=== PATIENT | female | born 1935 | race Caucasian/White ===

== ENCOUNTER → 2017-01-11 | Outpatient (REF) | payer MEDICARE | LOC: M SMT 13:01 | PROVIDERS: ATTEND Nurse Practitioner Women's Health | DX: R30.0 Dysuria (principal) ==

== ENCOUNTER → 2017-01-23 | Outpatient (CLI) | payer MEDICARE ==
--- NOTE | 2017-01-23 11:27 | REP ---
CT abdomen pelvis without IV and oral contrast: Comparison is 05/13/2008. There are bilateral renal calculi most in the 3 mm size range except for the lower pole of the right kidney where there is an 8 mm calcification. These calculi are nonobstructive. Some of these calculi are again atheromatous calcifications. There are no ureteral calculi. There is no hydronephrosis. The gallbladder calculi. There are numerous phleboliths in the pelvis. There is a calcified granuloma in the lower lobe of the right lung. The visualized lung jimenez are otherwise unremarkable. The unenhanced hepatic parenchyma is unremarkable. The the patient states she has a cholecystectomy. Pancreas is unremarkable. The spleen is unremarkable. There is vascular calcified atheroma in the splenic artery and suspect there are splenic artery aneurysms. This is unchanged. The abdominal aorta is unremarkable except for calcified atheroma. The bowel and mesentery are unremarkable. Pelvis: There is no adenopathy or ascites. The bladder is unremarkable. There is a hysterectomy. Vaginal cuff and adnexa are unremarkable. Pelvic bowel loops are unremarkable. Impression: Bilateral renal calculi as described. Some of these may be vascular atheromatous calcifications. There is no hydronephrosis. There are no ureteral or bladder calculi. There are phleboliths in the pelvis. 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 There is bilateral hip osteoarthritis somewhat more advanced on the left. There is degenerative disc disease at multiple levels in the lumbar spine. Signed by González Gonzalez MD 01/23/2017 11:19 A
== END ==
LOC: M RAD 08:56
PROVIDERS: ATTEND Nurse Practitioner Women's Health
DX: R30.0 Dysuria (principal); R10.9 Unspecified abdominal pain

== ENCOUNTER → 2017-03-27 | Outpatient (REF) | payer MEDICARE ==
[2017-03-27 14:41] LABS: FERRITIN 182 NG/ML (8-252); IMMUNOGLOBULIN A 61.1 MG/DL (70-400); IMMUNOGLOBULIN G 1670 MG/DL (681-1648); IMMUNOGLOBULIN M 23.6 MG/DL (40-230); PERCENT SATURATION 28.3 % (13.2-45.0); TOTAL IRON BINDING CAPACITY 198 UG/DL (250-450)
[2017-03-28 15:01] LABS: ALBUMIN 3.58 GM/DL (3.29-5.55); ALBUMIN % 51.2 % (55.8-66.1); GAMMA GLOBULIN % 23.7 % (11.1-18.8)
[2017-03-29 14:14] LABS: FREE KAPPA LIGHT CHAINS SERUM 70.9 mg/L (3.3-19.4); FREE LAMBDA LIGHT CHAINS SERUM 13.1 mg/L (5.7-26.3); KAPPA/LAMBDA RATIO SERUM 5.41 (0.26-1.65)
== END ==
LOC: M LAB REF 13:28
PROVIDERS: ATTEND Internal Medicine Medical Oncology
DX: D47.2 Monoclonal gammopathy (principal)

== ENCOUNTER → 2017-04-27 | Outpatient (REF) | payer MEDICARE ==
[2017-04-27 15:03] LABS: TOTAL PROTEIN 7.4 GM/DL (6.4-8.2)
[2017-04-29 00:08] LABS: FREE KAPPA LIGHT CHAINS SERUM 65.2 mg/L (3.3-19.4); FREE LAMBDA LIGHT CHAINS SERUM 13.7 mg/L (5.7-26.3); KAPPA/LAMBDA RATIO SERUM 4.76 (0.26-1.65)
[2017-05-01 12:00] LABS: ALBUMIN 3.72 GM/DL (3.29-5.55); GAMMA GLOBULIN % 23.7 % (11.1-18.8)
[2017-05-01 12:56] LABS: ALBUMIN % 50.3 % (55.8-66.1)
== END ==
LOC: M LAB REF 08:11
PROVIDERS: ATTEND Internal Medicine Nephrology
DX: N18.3 Chronic kidney disease, stage 3 (moderate) (principal); D47.2 Monoclonal gammopathy

== ENCOUNTER → 2017-07-11 | Outpatient (REF) | payer MEDICARE ==
[2017-07-11 13:52] LABS: PERCENT SATURATION 30.8 % (13.2-45.0)
== END ==
LOC: M LAB REF 13:01
PROVIDERS: ATTEND Internal Medicine Medical Oncology
DX: D47.2 Monoclonal gammopathy (principal); D64.9 Anemia, unspecified

== ENCOUNTER → 2017-11-29 | Outpatient (REF) | payer MEDICARE ==
[2017-11-29 14:11] LABS: FERRITIN 188 NG/ML (8-252); IMMUNOGLOBULIN G 1770 MG/DL (681-1648); IRON (FE) 66 UG/DL (50-170); PERCENT SATURATION 28.7 % (13.2-45.0); TOTAL IRON BINDING CAPACITY 230 UG/DL (250-450); TOTAL PROTEIN 7.6 GM/DL (6.4-8.2)
[2017-11-30 10:14] LABS: ALBUMIN 3.83 GM/DL (3.29-5.55); ALBUMIN % 50.4 % (55.8-66.1); ALPHA-1-GLOBULIN % 3.6 % (2.9-4.9); ALPHA-1-GLOBULINS 0.27 GM/DL (0.17-0.41); ALPHA-2-GLOBULINS 0.97 GM/DL (0.42-0.99); ALPHA-2-GLOBULINS % 12.8 % (7.1-11.8); BETA-1-GLOBULINS 0.36 GM/DL (0.28-0.60); BETA-1-GLOBULINS % 4.7 % (4.7-7.2); BETA-2-GLOBULINS 0.29 GM/DL (0.19-0.55); BETA-2-GLOBULINS % 3.8 % (3.2-6.5); GAMMA GLOBULIN % 24.7 % (11.1-18.8); GAMMA GLOBULINS 1.88 GM/DL (0.65-1.58)
[2017-12-01 00:06] LABS: FREE KAPPA LIGHT CHAINS SERUM 76.1 mg/L (3.3-19.4); KAPPA/LAMBDA RATIO SERUM 6.34 (0.26-1.65)
== END ==
LOC: M LAB REF 13:12
DX: D47.2 Monoclonal gammopathy (principal)
CPT/HCPCS: 83550

== ENCOUNTER → 2018-02-07 | Outpatient (REF) | payer MEDICARE ==
[2018-02-07 14:29] LABS: IMMUNOGLOBULIN A 66.6 MG/DL (70-400); IMMUNOGLOBULIN G 1870 MG/DL (681-1648); TOTAL PROTEIN 7.1 GM/DL (6.4-8.2)
[2018-02-07 15:24] LABS: IMMUNOGLOBULIN M < 5.3 MG/DL (40-230)
[2018-02-08 09:51] LABS: ALBUMIN 3.54 GM/DL (3.29-5.55); ALBUMIN % 49.9 % (55.8-66.1); ALPHA-1-GLOBULIN % 3.7 % (2.9-4.9); ALPHA-1-GLOBULINS 0.26 GM/DL (0.17-0.41); ALPHA-2-GLOBULINS 0.92 GM/DL (0.42-0.99); ALPHA-2-GLOBULINS % 12.9 % (7.1-11.8); BETA-1-GLOBULINS 0.32 GM/DL (0.28-0.60); BETA-1-GLOBULINS % 4.5 % (4.7-7.2); BETA-2-GLOBULINS 0.26 GM/DL (0.19-0.55); BETA-2-GLOBULINS % 3.7 % (3.2-6.5); GAMMA GLOBULIN % 25.3 % (11.1-18.8)
[2018-02-09 00:07] LABS: FREE KAPPA LIGHT CHAINS SERUM 95.9 mg/L (3.3-19.4); FREE LAMBDA LIGHT CHAINS SERUM 14.1 mg/L (5.7-26.3)
== END ==
LOC: M LAB REF 13:37
DX: C84.9 Mature T/NK-cell lymphomas, unspecified (principal); N18.3 Chronic kidney disease, stage 3 (moderate); D47.2 Monoclonal gammopathy
CPT/HCPCS: 84165

== ENCOUNTER → 2018-03-19 | Outpatient (REF) | payer MEDICARE ==
[2018-03-19 13:45] LABS: FERRITIN 199 NG/ML (8-252); IRON (FE) 59 UG/DL (50-170); PERCENT SATURATION 27.7 % (13.2-45.0); TOTAL IRON BINDING CAPACITY 213 UG/DL (250-450)
== END ==
LOC: M LAB REF 13:17
DX: C84.9 Mature T/NK-cell lymphomas, unspecified (principal); N18.3 Chronic kidney disease, stage 3 (moderate); D47.2 Monoclonal gammopathy
CPT/HCPCS: 83550

== ENCOUNTER → 2018-07-02 | Outpatient (REF) | payer MEDICARE | LOC: M LAB REF 13:02 | DX: N18.3 Chronic kidney disease, stage 3 (moderate) (principal) | CPT/HCPCS: 84156 ==

== ENCOUNTER → 2018-11-22 | Outpatient (REF) | payer MEDICARE ==
[~2018-11-22] MED LIST: ACET160S6 FT; AMLO10TA5 PO; ASPI81CH33 PO; ATOR40TA75 PO; AZIT-12 PO; COZA100T2 PO; FERR325T82 PO; FISH7.5C PO; GLUC1CAP10 PO; GLUCPOW24 PO; LEVO50TA5 PO; MAGN250T7 PO; METO25TA4 PO; NITR0.4S14 SL; OXYB10TA PO; VITAD1000T PO
[2018-11-22 13:42] LABS: TOTAL PROTEIN 7.3 GM/DL (6.4-8.2)
[2018-11-22 17:13] LABS: TOTAL PROTEIN,RANDOM URINE 165.2 MG/DL (0.0-12.0); URINE TOTAL PROTEIN 165.2 MG/DL (0-12)
[2018-11-24 00:08] LABS: FREE KAPPA LIGHT CHAINS SERUM 100.5 mg/L (3.3-19.4); KAPPA/LAMBDA RATIO SERUM 7.73 (0.26-1.65)
[2018-11-27 10:58] LABS: ALBUMIN 3.63 GM/DL (3.29-5.55); ALBUMIN % 49.7 % (55.8-66.1); ALPHA-1-GLOBULIN % 3.6 % (2.9-4.9); ALPHA-1-GLOBULINS 0.26 GM/DL (0.17-0.41); ALPHA-2-GLOBULINS 0.91 GM/DL (0.42-0.99); ALPHA-2-GLOBULINS % 12.4 % (7.1-11.8); BETA-1-GLOBULINS 0.34 GM/DL (0.28-0.60); BETA-1-GLOBULINS % 4.7 % (4.7-7.2); BETA-2-GLOBULINS 0.26 GM/DL (0.19-0.55); BETA-2-GLOBULINS % 3.6 % (3.2-6.5)
[2018-11-27 11:20] LABS: IMMUNOTYPING SERUM IGG ABNORMAL (NORMAL); IMMUNOTYPING SERUM KAPPA ABNORMAL (NORMAL)
== END ==
LOC: M LAB REF 13:08
PROVIDERS: ATTEND Internal Medicine Nephrology
DX: D47.2 Monoclonal gammopathy (principal)

== ENCOUNTER → 2019-12-12 | Outpatient (REF) | payer MEDICARE ==
[~2019-12-12] MED LIST changes: +AUGM875T28 PO; +CHOL100029 PO; +CYAN100050 PO; +HYDR12.55 PO; +METO1TAB87 PO; -OXYB10TA PO; +OXYB10TA23 PO; +ULTR5TAB PO; +VITA100054 PO; -VITAD1000T PO; +[UNRECOGNIZED DRUG - CODE] PO; +[UNRECOGNIZED DRUG - CODE] SC
== END ==
LOC: M LAB REF 16:41
PROVIDERS: ATTEND Nurse Practitioner Family
DX: N39.0 Urinary tract infection, site not specified (principal)

== ENCOUNTER → 2020-07-13 | Outpatient (REF) | payer OTHER ==
[~2020-07-13] MED LIST changes: -AMLO10TA5 PO; +AMLO1TAB25 PO; +LEVO250T12 PO
[2020-07-14 08:00] LABS: TOTAL PROTEIN 7.8 GM/DL (6.4-8.2)
[2020-07-14 11:07] LABS: ALBUMIN % 48.7 % (55.8-66.1); ALPHA-1-GLOBULIN % 3.5 % (2.9-4.9); ALPHA-1-GLOBULINS 0.27 GM/DL (0.17-0.41); ALPHA-2-GLOBULINS 0.98 GM/DL (0.42-0.99); ALPHA-2-GLOBULINS % 12.5 % (7.1-11.8); BETA-1-GLOBULINS 0.33 GM/DL (0.28-0.60); BETA-1-GLOBULINS % 4.2 % (4.7-7.2); BETA-2-GLOBULINS 0.25 GM/DL (0.19-0.55); BETA-2-GLOBULINS % 3.2 % (3.2-6.5); GAMMA GLOBULIN % 27.9 % (11.1-18.8); GAMMA GLOBULINS 2.18 GM/DL (0.65-1.58)
[2020-07-14 11:11] LABS: IMMUNOTYPING SERUM IGG ABNORMAL (NORMAL); IMMUNOTYPING SERUM KAPPA ABNORMAL (NORMAL)
[2020-07-15 18:08] LABS: FREE KAPPA LIGHT CHAINS SERUM 111.5 mg/L (3.3-19.4); FREE LAMBDA LIGHT CHAINS SERUM 14.3 mg/L (5.7-26.3); KAPPA/LAMBDA RATIO SERUM 7.8 (0.26-1.65)
== END ==
LOC: M LAB REF 17:02
PROVIDERS: ATTEND Internal Medicine Nephrology
DX: N39.0 Urinary tract infection, site not specified (principal); D47.2 Monoclonal gammopathy

== ENCOUNTER → 2020-08-24 | Outpatient (REF) | payer OTHER ==
[2020-08-24 17:21] LABS: INR 0.98; PROTHROMBIN TIME 13.1 SECONDS (12.5-14.3)
== END ==
LOC: M LAB REF 16:48
PROVIDERS: ATTEND Internal Medicine Nephrology
DX: Z01.818 Encounter for other preprocedural examination (principal); N18.4 Chronic kidney disease, stage 4 (severe)

== ENCOUNTER → 2020-09-14 | Outpatient (CLI) | payer OTHER ==
[~2020-09-14] MED LIST changes: +ACETAMINOPHEN 500 MG TAB PO ONE; +LIDOCAINE 1% MDV 20ML VIAL As Ordered ONE; +LORazepam 2 MG/ML VIAL As Ordered ONE; +hydrALAZINE 20MG/ML 1ML VIAL (J0360 PER 20MG) As Ordered ONE
--- NOTE | 2020-09-14 15:20 | RO ---
OPERATIVE NOTE DATE OF OPERATION: 09/14/2020 PROCEDURE: Ultrasound-guided left renal biopsy. INDICATIONS FOR PROCEDURE: 1. Chronic kidney disease stage 4. 2. Proteinuria. 3. Monoclonal gammopathy of undetermined significance. ANESTHESIA: 13 cc of 1% lidocaine was used. VISCOSITY INSPECTOR: Nataly Martin MD CONSENT: Informed and written consent was taken from the patient and was placed on the chart. PRE-PROCEDURE DIAGNOSES: 1. Chronic kidney disease stage 4. 2. Proteinuria. 3. Monoclonal gammopathy of undetermined significance. POST-PROCEDURE DIAGNOSES: 1. Chronic kidney disease stage 4. 2. Proteinuria. 3. Monoclonal gammopathy of undetermined significance. 4. Echogenic kidneys on ultrasound. DESCRIPTION OF THE PROCEDURE: The patient was lying down on the table in the prone position, comfortably. Procedure had already been explained to the patient. Before the procedure, her blood pressures systolic were in the 190s and she was slightly anxious, so 1 mg of IV Ativan and hydralazine 20 mg IV x1 dose were given. The patient's kidneys were localized with ultrasound. The left kidney was marked for renal biopsy. The patient was prepped and draped in sterile fashion. Proper infection control precautions were taken. Then, 13 cc of 1% lidocaine was injected initially with a 25-gauge needle and then with an 18-gauge longer needle. A 17-gauge introducer needle was inserted under ultrasound guidance all the way up to the renal capsule. Then, an 18-gauge biopsy needle was inserted through the introducer needle and three cold biopsy specimens were received. After that, the introducer needle was removed. Biopsy site was kept under pressure and then covered with a dressing. Post-procedure, the kidney was looked at with ultrasound for any complications. No hematoma was noted. COMPLICATIONS: None. ESTIMATED BLOOD LOSS: Minimal, less than 1 mL. POST-BIOPSY ORDERS: 1. The patient was sent to the recovery room. 2. Vitals will be check every 15 minutes for two hours and then every 30 minutes for two hours. 3. 2 grams sodium diet. 4. Complete blood tests with bedside commode privileges. 5. MD to be called for systolic blood pressure less than 120 and for hematuria. 6. The patient is to be discharged to home if she is stable after four hours. BIOPSY SPECIMENS: Biopsy specimens were sent to the Pathology Department for further processing.
[2020-09-14 17:46] VITALS: BP 136/65
--- NOTE | 2020-09-15 09:29 | REP ---
INDICATION: CKD IV PROTEINURIA. COMPARISON: None. TECHNIQUE: Ultrasound guidance. FINDINGS: Sonographic at cyst guidance is provided to Dr. Martin who performed ultrasound-guided needle biopsy procedure of the left kidney. IMPRESSION: Sonographic guidance. Procedural imaging. <Electronically signed by Donnie Moura > 09/15/20 [id number]
== END ==
LOC: M IRPRO 12:01
PROVIDERS: ATTEND Internal Medicine Nephrology
DX: N18.4 Chronic kidney disease, stage 4 (severe) (principal); R80.1 Persistent proteinuria, unspecified; D47.2 Monoclonal gammopathy
CPT/HCPCS: 50200; 76942; 88300; J0360; J2060

== ENCOUNTER → 2021-04-15 | Outpatient (REF) | payer OTHER ==
[~2021-04-15] MED LIST changes: -ACETAMINOPHEN 500 MG TAB PO ONE; +ACYC1TAB PO; +ATOR1TAB21 PO; +BIOT10009 PO; +CALTRATE PO; +CENT1TAB PO; +CYCL1CAP2 PO; +D3 PO; +DEXA0.5E2 PO; +DEXA4TA PO; +DULO1CAP5 PO; +FIBE625T PO; +GABA-282 PO; +HYDR-3910 PO; +IRONTAB3 PO; -LIDOCAINE 1% MDV 20ML VIAL As Ordered ONE; -LORazepam 2 MG/ML VIAL As Ordered ONE; +MAGO400T2 PO; +VELC3.5I; -hydrALAZINE 20MG/ML 1ML VIAL (J0360 PER 20MG) As Ordered ONE
== END ==
LOC: M LAB REF 13:12
PROVIDERS: ATTEND Internal Medicine Nephrology
DX: E83.42 Hypomagnesemia (principal)

== ENCOUNTER → 2021-07-15 | Outpatient (REF) | payer OTHER ==
[~2021-07-15] MED LIST changes: +HYDR-3490 PO; -LEVO250T12 PO; +LEVO250T3 PO
== END ==
LOC: M LAB REF 13:30
PROVIDERS: ATTEND Internal Medicine Nephrology
DX: N18.32 Chronic kidney disease, stage 3b (principal); E83.42 Hypomagnesemia

== ENCOUNTER → 2021-10-12 | Outpatient (REF) | payer OTHER, MEDICARE ==
[~2021-10-12] MED LIST changes: +PROC1INJ6 IJ
== END ==
LOC: M LAB REF 12:55
PROVIDERS: ATTEND Nurse Practitioner Family
DX: E83.42 Hypomagnesemia (principal)

== ENCOUNTER → 2022-03-28 | Outpatient (CLI) | payer MEDICARE ==
[~2022-03-28] MED LIST changes: +ACET650T15 PO; +FERR325T3 PO; +FISH10005 PO; -FISH7.5C PO; +LEVO1TAB38 PO; -LEVO250T3 PO; +POTA8CAP10 PO; +PROC1INJ6 INJ; +RETA2000 IJ
== END ==
LOC: M RAD 09:17
PROVIDERS: ATTEND Specialist
DX: D47.2 Monoclonal gammopathy (principal); M25.731 Osteophyte, right wrist; M19.031 Primary osteoarthritis, right wrist

== ENCOUNTER → 2022-11-04 | Outpatient (REF) | payer MEDICARE ==
[~2022-11-04] MED LIST changes: +CEPH500C PO; -COZA100T2 PO; +COZA100T3 PO; +HYDR25TA PO
[2022-11-04 18:58] LABS: HEPATITIS B SURFACE ANTIBODY NEGATIVE (POSITIVE)
[2022-11-04 19:10] LABS: HEPATITIS B SURFACE ANTIGEN NEGATIVE (NEGATIVE)
[2022-11-04 19:31] LABS: HEPATITIS B CORE ANTIBODY IGM NEGATIVE (NEGATIVE); HEPATITIS C VIRUS ABY INDEX 0.1 INDEX (<0.8)
== END ==
LOC: M LAB REF 17:14
PROVIDERS: ATTEND Nurse Practitioner Family
DX: N18.5 Chronic kidney disease, stage 5 (principal)

== ENCOUNTER → 2022-11-15 | Outpatient (CLI) | payer MEDICARE ==
[~2022-11-15] VITALS: Ht 162.6 cm; Wt 67.1 kg
[~2022-11-15] MED LIST changes: +HEPARIN 1,000UNITS/ML 10ML VIAL (FOR RADIOLOGY & DIALYSIS ONLY) As Ordered ONE; +LIDOCAINE 1% MDV 20ML VIAL As Ordered ONE; +LIDOCAINE W/EPINEPHRINE 1% 20ML VIAL As Ordered ONE; +MIDAZOLAM INJ 2MG/2ML VIAL As Ordered ONE; +ceFAZolin 2 GM/D5W 50 ML IV BAG As Ordered ONE; +ceFAZolin SOD 2 GM in IV 1 EA IV ONE; +fentaNYL 100 MCG/2 ML INJECTION As Ordered ONE; +hydrALAZINE 20MG/ML 1ML VIAL As Ordered ONE; +hydrALAZINE 20MG/ML 1ML VIAL IV ONE
[2022-11-15 10:20] LABS: HEMATOCRIT 27.7 % (36.0-47.0); HEMOGLOBIN 8.4 g/dl (12.0-15.5); MEAN CORPUSCULAR HEMOGLOBIN 28.5 pg (27.0-33.0); MEAN CORPUSCULAR HGB CONC 30.3 g/dl (32.0-36.5); MEAN CORPUSCULAR VOLUME 93.9 fl (80.0-96.0); PLATELET COUNT, AUTOMATED 165 10^3/uL (150-450); RED BLOOD COUNT 2.95 10^6/uL (4.00-5.40); WHITE BLOOD COUNT 6.9 10^3/uL (4.0-10.0)
[2022-11-15 10:46] LABS: INR 0.93; PROTHROMBIN TIME 12.7 SECONDS (12.5-14.5)
[2022-11-15 10:56] LABS: CALCIUM LEVEL 9.3 MG/DL (8.3-10.6); CREATININE FOR GFR 5.21 MG/DL (0.55-1.30); GLOMERULAR FILTRATION RATE 8.3 (>32); MAGNESIUM LEVEL 2.1 MG/DL (1.8-2.4); POTASSIUM SERUM 4.5 MMOL/L (3.5-5.1)
[2022-11-15 12:15] VITALS: BP 158/57
== END ==
LOC: M IRPRO 09:13
PROVIDERS: ATTEND Surgery Vascular Surgery
DX: N18.6 End stage renal disease (principal)
CPT/HCPCS: 36561; 80048; 83735; 85027; 85610; 86850; 86900; 86901; C1750; C1769; C1894; J0360; J0690; J2250; J3010

== ENCOUNTER → 2022-12-22 | Outpatient (CLI) | payer MEDICARE ==
[~2022-12-22] MED LIST changes: -HEPARIN 1,000UNITS/ML 10ML VIAL (FOR RADIOLOGY & DIALYSIS ONLY) As Ordered ONE; -LIDOCAINE 1% MDV 20ML VIAL As Ordered ONE; -LIDOCAINE W/EPINEPHRINE 1% 20ML VIAL As Ordered ONE; -MIDAZOLAM INJ 2MG/2ML VIAL As Ordered ONE; -ceFAZolin 2 GM/D5W 50 ML IV BAG As Ordered ONE; -ceFAZolin SOD 2 GM in IV 1 EA IV ONE; -fentaNYL 100 MCG/2 ML INJECTION As Ordered ONE; -hydrALAZINE 20MG/ML 1ML VIAL As Ordered ONE; -hydrALAZINE 20MG/ML 1ML VIAL IV ONE
== END ==
LOC: M RAD 09:21
PROVIDERS: ATTEND Surgery Vascular Surgery
DX: Z01.818 Encounter for other preprocedural examination (principal); N18.6 End stage renal disease; I65.23 Occlusion and stenosis of bilateral carotid arteries

== ENCOUNTER → 2023-02-28 | Day surgery (SDC) | payer MEDICARE ==
[~2023-02-28] VITALS: Ht 165.1 cm; Wt 66.4 kg
[~2023-02-28] MED LIST changes: +ACETAMINOPHEN 1000MG 100ML IV BAG As Ordered ONE; +CISATRACURIUM 2MG/ML 5ML VIAL As Ordered ONE; +CYAN-1 PO; -CYAN100050 PO; +D5W/0.2% SODIUM CHLORIDE 1,000 ML IV SCH; +HYDROMORPHONE HCL 0.5 MG/ 0.5 ML SYRINGE IV PRN; +LABETALOL 100MG/20ML VIAL As Ordered ONE; +LIDOCAINE 1% SDV 30ML VIAL As Ordered ONE; +LIDOCAINE 2% 100MG/5ML SDV (FOR ANES.) As Ordered ONE; +ONDANSETRON 4MG 2ML VIAL As Ordered ONE; +ONDANSETRON 4MG 2ML VIAL IV PRN; +PAPAVERINE HCL 60MG 2ML VIAL (30MG/ML) As Ordered ONE; +ceFAZolin SOD 2 GM in IV 1 EA IV ONE; +ePHEDrine SULFATE 25 MG/5 ML(5MG/ML) SYRINGE As Ordered ONE; +fentaNYL 100 MCG/2 ML INJECTION As Ordered ONE; +fentaNYL 100 MCG/2 ML INJECTION IV PRN; +oxyCODONE 5MG TAB PO PRN; +propofoL 200 MG/20 ML VIAL As Ordered ONE
[2023-02-28 06:55] LABS: HEMATOCRIT 36.6 % (36.0-47.0); HEMOGLOBIN 11.6 g/dl (12.0-15.5); MEAN CORPUSCULAR HEMOGLOBIN 30.9 pg (27.0-33.0); MEAN CORPUSCULAR HGB CONC 31.7 g/dl (32.0-36.5); MEAN CORPUSCULAR VOLUME 97.6 fl (80.0-96.0); PLATELET COUNT, AUTOMATED 211 10^3/uL (150-450); RED BLOOD COUNT 3.75 10^6/uL (4.00-5.40); WHITE BLOOD COUNT 5.8 10^3/uL (4.0-10.0)
[2023-02-28 07:02] LABS: INR 0.89; PROTHROMBIN TIME 12.2 SECONDS (12.5-14.5)
[2023-02-28 07:03] LABS: PARTIAL THROMBOPLASTIN TIME 28.2 SECONDS (24.8-34.2)
[2023-02-28 07:17] LABS: CALCIUM LEVEL 9.3 MG/DL (8.3-10.6); CREATININE FOR GFR 2.95 MG/DL (0.55-1.30); GLOMERULAR FILTRATION RATE 16.1 (>32); POTASSIUM SERUM 3.5 MMOL/L (3.5-5.1)
[2023-02-28] MEDS: THROMBIN 5,000 UNITS VIAL As Ordered ONE ×2 (09:37→09:58)
[2023-02-28 12:35] VITALS: BP 138/71; TEMP 97.1; O2SAT 97
== END | disposition home or self-care (01) ==
LOC: M SDC 06:01
PROVIDERS: ATTEND Surgery Vascular Surgery
DX: N18.6 End stage renal disease (principal); I25.10 Atherosclerotic heart disease of native coronary artery without angina pectoris; I10 Essential (primary) hypertension; E78.5 Hyperlipidemia, unspecified; D64.9 Anemia, unspecified; Z79.899 Other long term (current) drug therapy
CPT/HCPCS: 36415; 36830; 80048; 85027; 85610; 85730; 86850; 86900; 86901; C1768; J0131; J0665; J0690; J1100; J1920; J2405; J2440; J3010

== ENCOUNTER 2025-03-24 07:33 | Inpatient (IN) | payer MEDICARE, OTHER ==
[2025-03-24] VITALS (21 sets, daily range): BP systolic 56–118; BP diastolic 27–75; TEMP 99–102.7; O2SAT 87–99
[~2025-03-24] VITALS: Ht 165.1 cm; Wt 73.4 kg
[~2025-03-24 07:33] MED LIST changes: -ALBUTEROL SULFATE (2.5MG/0.5ML) NEB INH PRN; -BORTEZOMIB for SC use (VELCADE) SC ONE; -DULO30CA9 PO; -ELIQ2.5T PO; -ENTR1TAB PO; -EPINEPHrine (1MG/ML) IV IM PRN; -EPOETIN 40,000 UNIT/ML SC ONE; -EPOETIN ALFA 10000 UNIT/ML SC ONE; -EPOETIN ALFA 40000 UNIT/ML As Ordered ONE; -EPOETIN ALFA 40000 UNIT/ML SC PRN; -FAMOTIDINE IV BAG 20 MG IV PRN; -FERR240T PO; -METO1TAB32 PO; -NS (Normal Saline) 0.9% 1,000 ML IV PRN; -SEVE800T3 PO; -SODIUM CHLORIDE 0.9% INJ 10 ML SYR IV PRN; -[UNRECOGNIZED DRUG - REMARK] SC SCH; -diphenhydrAMINE (50MG/ML) IV IV PRN; -methylPREDNISolone (125 MG/2 ML) IV IV PRN
[2025-03-24] MEDS: ACETAMINOPHEN 325 MG TAB PO ONE (08:20)
[2025-03-24] MEDS ORDERED: ATOR1TAB21 PO (08:34)
[2025-03-24] MEDS ORDERED: ENTR1TAB PO (08:34)
[2025-03-24] MEDS ORDERED: FERR240T PO (08:34)
[2025-03-24] MEDS ORDERED: ELIQ2.5T PO (08:34)
[2025-03-24] MEDS ORDERED: DULO30CA9 PO (08:34)
[2025-03-24] MEDS ORDERED: SEVE800T3 PO (08:34)
[2025-03-24] MEDS ORDERED: METO1TAB32 PO (08:34)
[2025-03-24] MEDS ORDERED: HOME MED LIST COMPLETE! XX SCH (08:35)
[2025-03-24 09:10] LABS: APPEARANCE, URINE HAZY (CLEAR); BACTERIA, URINE AUTO 3+ (NEGATIVE); BILIRUBIN, URINE AUTO NEGATIVE (NEGATIVE); BLOOD, URINE BLOOD 2+ (NEGATIVE); GLUCOSE, URINE (UA) AUTO NEGATIVE (NEGATIVE); KETONE, URINE AUTO NEGATIVE (NEGATIVE); LEUKOCYTE ESTERASE, URINE AUTO 2+ (NEGATIVE); NITRITE, URINE AUTO NEGATIVE (NEGATIVE); PROTEIN, URINE AUTO 2+ mg/dL (NEGATIVE); RBC, URINE AUTO 9 /HPF (0-3); SPECIFIC GRAVITY URINE AUTO 1.015 (1.002-1.035); SQUAMOUS EPITHELIAL CELL UR AU 1 /HPF (0-6); UROBILINOGEN, URINE AUTO 0.2 mg/dL (0.0-2.0); WBC, URINE AUTO 39 /HPF (0-3)
[2025-03-24] MEDS: PIPERACILLIN/TAZOBACTAM SOD 4.5 GM in DEXTROSE 5% (D5W) ADV/MINI-BAG 50 ML IV ONE (09:33)
[2025-03-24 09:34] LABS: VENOUS BASE EXCESS -3.3 (-2.0-2.0); VENOUS HCO3 23.7 MMOL/L (23.0-27.0); VENOUS O2 SATURATION 60.1 % (60.0-80.0); VENOUS PARTIAL PRESSURE CO2 52.3 mmHg (38.0-50.0); VENOUS PARTIAL PRESSURE O2 38.4 mmHg (30.0-50.0); VENOUS PH 7.274 UNITS (7.330-7.430); VENOUS STANDARD HCO3 21.1 MMOL/L; VENOUS TOTAL CO2 25.3 MMOL/L (24.0-28.0)
[2025-03-24 09:40] LABS: BASO # 0.0 10^3/uL (0.0-0.2); BASO % 0.0 % (0.0-1.0); EOS # 0.0 10^3/uL (0.0-0.5); EOS % 0.0 % (0.0-3.0); LYMPH # 0.2 10^3/uL (1.5-5.0); LYMPH % 20.9 % (24.0-44.0); MONO # 0.0 10^3/uL (0.0-0.8); MONO % 1.2 % (2.0-8.0); NEUTROPHILS % 10.5 % (36.0-66.0); PLATELET COUNT, AUTOMATED 147 10^3/uL (150-450)
[2025-03-24 09:41] LABS: NEUTROPHILS # 0.1 10^3/uL (1.5-8.5)
[2025-03-24 09:51] LABS: INR 1.9
[2025-03-24 10:01] LABS: CK-MB VALUE MASS 1.1 NG/ML (<3.6)
[2025-03-24 10:04] LABS: ALT/SGPT 18.0 U/L (7.0-40); AST/SGOT 44.0 U/L (<34); CALCIUM LEVEL 8.3 MG/DL (8.3-10.6); CARBON DIOXIDE LEVEL 24.0 MMOL/L (20-31); CHLORIDE LEVEL 90.0 MMOL/L (98-107); CPK CREATINE PHOSPHOKINASE 28.0 U/L (34-145); CREATININE FOR GFR 6.93 MG/DL (0.55-1.30); GLOMERULAR FILTRATION RATE 5.3 (>32); MB/CK RELATIVE INDEX 3.92 (< OR =4); POTASSIUM SERUM 3.2 MMOL/L (3.5-5.1); SODIUM LEVEL 129.0 MMOL/L (136-145)
[2025-03-24] MEDS: NS 500 ML IV ONE ×3 (10:20→15:53)
[2025-03-24] MEDS: DEXTROSE 50% 50 ML SYRINGE IV STA (10:20)
[2025-03-24 10:29] LABS: C REACTIVE PROTEIN QUANTITATIV 31.55 MG/DL (<1.0)
[2025-03-24] MEDS: VANCOMYCIN HCL 1,500 MG, VIAL MATE ADAPTER 1 EACH in NS 500 ML IV ONE (10:49)
[2025-03-24 11:29] LABS: CK-MB VALUE MASS 1.0 NG/ML (<3.6)
[2025-03-24 11:37] LABS: CPK CREATINE PHOSPHOKINASE 44.0 U/L (34-145); MB/CK RELATIVE INDEX 2.27 (< OR =4)
[2025-03-24] MEDS ORDERED: NS (Normal Saline) 0.9% 1,000 ML IV ONE (12:50)
[2025-03-24] MEDS ORDERED: HEPARIN 1,000 UNITS/ML 10 ML VIAL (FOR RADIOLOGY & DIALYSIS ONLY) IV PRN (13:00)
[2025-03-24] MEDS ORDERED: HEPARIN 1,000 UNITS/ML 10 ML VIAL (FOR RADIOLOGY & DIALYSIS ONLY) XX SCH (13:00)
[2025-03-24] MEDS ORDERED: SODIUM CHLORIDE 0.9% 1000 ML IV PRN (13:00)
[2025-03-24] MEDS ORDERED: LIDOCAINE 1% SDV 5 ML VIAL SC PRN (13:00)
[2025-03-24] MEDS ORDERED: PIPERACILLIN/TAZOBACTAM SOD 3.375 GM in DEXTROSE 5% (D5W) ADV/MINI-BAG 50 ML IV SCH (13:00)
[2025-03-24] MEDS ORDERED: VASOPRESSIN IN 0.9 % NACL 20UNIT/100ML INFUS.BTL As Ordered ONE (15:22)
[2025-03-24] MEDS ORDERED: NOREPINEPHRINE 4 MG IN D5W 250 ML IVBAG (16 MCG/ML) As Ordered ONE (15:26)
[2025-03-24] MEDS: AMIODARONE HCL 150 MG in IV 1 EA IV SCH (15:52)
[2025-03-24] MEDS: MORPHINE 2 MG/ML 1 ML VIAL IV STA ×2 (15:53→16:08)
[2025-03-24] MEDS: POTASSIUM CHLORIDE 10MEQ SR TABLET PO ONE (15:54)
[2025-03-24] MEDS: VASOPRESSIN IN 0.9 % NACL 20 UNIT in IV 1 EA IV SCH (15:55)
[2025-03-24] MEDS: AMIODARONE HCL 360 MG in IV 1 EA IV SCH (15:56)
[2025-03-24] MEDS ORDERED: HYDROCORTISONE 100 MG/2 ML VIAL IV SCH (16:00)
[2025-03-24] MEDS: NOREPINEPHRINE 4MG IN D5 250ML 4 MG in IV 1 EA IV SCH (16:02)
[2025-03-24] MEDS ORDERED: MORPHINE 2 MG/ML 1 ML VIAL IV PRN (16:15)
[2025-03-24] MEDS ORDERED: AMIODARONE HCL 360 MG in IV 1 EA IV SCH (20:55)
[2025-03-24] MEDS ORDERED: APIXABAN 2.5 MG TAB PO SCH (21:00)
[2025-03-24] MEDS ORDERED: SEVELAMER *CARBONate* 800 MG TAB PO SCH (21:00)
[2025-03-24] MEDS ORDERED: PIPERACILLIN/TAZOBACTAM SOD 4.5 GM in DEXTROSE 5% (D5W) ADV/MINI-BAG 50 ML IV SCH (21:00)
[2025-03-25] MEDS ORDERED: LEVOTHYROXINE 50 MCG TABLET (0.05 MG) PO SCH (06:00)
[2025-03-25 11:23] LABS: PROTEIN, TOTAL SO 7.2 g/dL (6.1-8.1)
[2025-03-25] MEDS ORDERED: VANCOMYCIN HCL 1,000 MG, VIAL MATE ADAPTER 1 EACH in NS 250 ML IV SCH (16:00)
[2025-03-26 12:43] LABS: FREE KAPPA LIGHT CHAINS SERUM 248.0 mg/L (3.3-19.4); FREE LAMBDA LIGHT CHAINS SERUM 19.7 mg/L (5.7-26.3); KAPPA/LAMBDA RATIO SERUM 12.59 (0.26-1.65)
[2025-03-27 07:31] LABS: ALBUMIN SO 2.4 g/dL (3.8-4.8); ALPHA 1 GLOBULINS SO 0.5 g/dL (0.2-0.3); ALPHA 2 GLOBULINS SO 0.8 g/dL (0.5-0.9); BETA 2 GLOBULIN SO 0.2 g/dL (0.2-0.5); BETA GLOBULIN SO 0.2 g/dL (0.4-0.6); GAMMA GLOBULINS SO 3.0 g/dL (0.8-1.7); SPEP IFE ABN PROTEIN BAND 1 2.9 g/dL (NONE DETECTED)
== END 2025-03-24 18:40 | disposition expired | DRG 871 ==
LOC: M ED 07:33 → M ED INP 12:49 → M ICU 14:29
PROVIDERS: ADMIT Student in an Organized Health Care Education/Training Program; ATTEND Internal Medicine
PROC: 06HM33Z Insertion of Infusion Device into Right Femoral Vein, Percutaneous Approach (ICD-10-PCS; principal; 2025-03-24)
DX: A41.9 Sepsis, unspecified organism (principal); R65.21 Severe sepsis with septic shock; N18.6 End stage renal disease; J96.02 Acute respiratory failure with hypercapnia; D61.818 Other pancytopenia; I12.0 Hypertensive chronic kidney disease with stage 5 chronic kidney disease or end stage renal disease; I48.20 Chronic atrial fibrillation, unspecified; N39.0 Urinary tract infection, site not specified; E87.29 Other acidosis; E87.1 Hypo-osmolality and hyponatremia; E03.9 Hypothyroidism, unspecified; D53.9 Nutritional anemia, unspecified; E21.1 Secondary hyperparathyroidism, not elsewhere classified; I25.10 Atherosclerotic heart disease of native coronary artery without angina pectoris; E78.5 Hyperlipidemia, unspecified; E16.2 Hypoglycemia, unspecified; E87.6 Hypokalemia; R74.01 Elevation of levels of liver transaminase levels; Z96.652 Presence of left artificial knee joint; D47.2 Monoclonal gammopathy; R53.1 Weakness; R52 Pain, unspecified; D70.9 Neutropenia, unspecified; Z79.899 Other long term (current) drug therapy; Z79.82 Long term (current) use of aspirin; Z79.01 Long term (current) use of anticoagulants

== ENCOUNTER → 2025-03-24 | Outpatient (RCR) | payer MEDICARE ==
[2018-05-21 09:25] LABS: LYMPH % 53.7 % (10.0-58.5); NEUTROPHILS # 2.7 10^3/uL (2.0-7.8); NEUTROPHILS % 40.9 % (37.0-92.0); PLATELET COUNT, AUTOMATED 191.0 10^3/uL (140-440)
[2018-05-21] MEDS: EPOETIN ALFA 10000 UNIT/ML SC ONE (11:30)
[2018-06-11 09:33] LABS: LYMPH % 48.6 % (10.0-58.5); NEUTROPHILS # 2.7 10^3/uL (2.0-7.8); NEUTROPHILS % 44.2 % (37.0-92.0); PLATELET COUNT, AUTOMATED 173.0 10^3/uL (140-440)
[2018-06-11] MEDS: EPOETIN ALFA 10000 UNIT/ML SC ONE (10:09)
[2018-06-11 10:10] VITALS: BP 155/69; TEMP 98.9; O2SAT 98
[2018-07-02 09:35] LABS: LYMPH % 44.3 % (10.0-58.5); NEUTROPHILS # 3.9 10^3/uL (2.0-7.8); NEUTROPHILS % 49.9 % (37.0-92.0); PLATELET COUNT, AUTOMATED 169.0 10^3/uL (140-440)
[2018-07-23 09:27] LABS: LYMPH % 51.9 % (10.0-58.5); NEUTROPHILS # 2.6 10^3/uL (2.0-7.8); NEUTROPHILS % 42.0 % (37.0-92.0); PLATELET COUNT, AUTOMATED 184.0 10^3/uL (140-440)
[2018-07-23] MEDS: EPOETIN ALFA 10000 UNIT/ML SC ONE (09:58)
[2018-08-16 09:19] LABS: LYMPH % 49.5 % (24.0-44.0); NEUTROPHILS # 2.9 10^3/uL (1.8-7.7); NEUTROPHILS % 43.6 % (36.0-66.0); PLATELET COUNT, AUTOMATED 187.0 10^3/uL (150-450)
[2018-08-16 10:06] LABS: IRON (FE) 64.0 UG/DL (50-170); PERCENT SATURATION 28.8 % (13.2-45.0)
[2018-08-16 10:28] VITALS: BP 163/81; TEMP 97.3; O2SAT 100
[2018-08-19 00:07] LABS: FREE KAPPA LIGHT CHAINS SERUMX 106.4 mg/L (3.3-19.4); FREE LAMBDA LIGHT CHAINSX 13.6 mg/L (5.7-26.3); KAPPA/LAMBDA RATIO SERUMX 7.82 (0.26-1.65); SOLUBLE TRANSFERRIN RECEPTOR 15.5 nmol/L (12.2-27.3)
[2018-08-21 12:49] LABS: ALBUMIN % 50.8 % (55.8-66.1); ALPHA-1-GLOBULIN % 3.5 % (2.9-4.9); ALPHA-1-GLOBULINS 0.27 GM/DL (0.17-0.41); ALPHA-2-GLOBULINS 0.94 GM/DL (0.42-0.99); ALPHA-2-GLOBULINS % 12.4 % (7.1-11.8); BETA-1-GLOBULINS 0.36 GM/DL (0.28-0.60); BETA-1-GLOBULINS % 4.7 % (4.7-7.2); BETA-2-GLOBULINS 0.27 GM/DL (0.19-0.55); BETA-2-GLOBULINS % 3.5 % (3.2-6.5); GAMMA GLOBULIN % 25.1 % (11.1-18.8); GAMMA GLOBULINS 1.91 GM/DL (0.65-1.58)
[2018-09-06 08:16] LABS: LYMPH % 45.8 % (24.0-44.0); NEUTROPHILS # 3.3 10^3/uL (1.8-7.7); NEUTROPHILS % 47.1 % (36.0-66.0); PLATELET COUNT, AUTOMATED 190.0 10^3/uL (150-450)
[2018-09-06] MEDS: EPOETIN ALFA 10000 UNIT/ML SC ONE (08:46)
[2018-09-06 08:49] VITALS: BP 155/78; TEMP 98; O2SAT 99
[2018-10-04 08:15] LABS: LYMPH % 52.8 % (24.0-44.0); NEUTROPHILS # 2.8 10^3/uL (1.8-7.7); NEUTROPHILS % 41.4 % (36.0-66.0); PLATELET COUNT, AUTOMATED 164.0 10^3/uL (150-450)
[2018-10-04 08:51] VITALS: BP 160/72; TEMP 97.3; O2SAT 99
[2018-10-04] MEDS: EPOETIN ALFA 10000 UNIT/ML SC ONE (08:53)
[2018-11-01 07:52] VITALS: BP 161/71; TEMP 97.1; O2SAT 99
[2018-11-01 08:03] LABS: LYMPH % 52.3 % (24.0-44.0); NEUTROPHILS # 2.3 10^3/uL (1.8-7.7); NEUTROPHILS % 39.8 % (36.0-66.0); PLATELET COUNT, AUTOMATED 200.0 10^3/uL (150-450)
[2018-11-01 08:41] LABS: IRON (FE) 66.0 UG/DL (50-170); PERCENT SATURATION 34.4 % (13.2-45.0)
[2018-11-01 09:07] LABS: CALCIUM LEVEL 8.8 MG/DL (8.5-10.2); CARBON DIOXIDE LEVEL 26 MEQ/L (23-31); CHLORIDE LEVEL 105 MMOL/L (98-107); CREATININE FOR GFR 1.47 MG/DL (0.60-1.10); GLOMERULAR FILTRATION RATE 36.2 (>32); POTASSIUM SERUM 4.0 MMOL/L (3.5-5.1); SODIUM LEVEL 140 MMOL/L (136-145)
[2018-11-01] MEDS: EPOETIN ALFA 40000 UNIT/ML SC ONE (09:39)
[2018-12-07 13:27] LABS: LYMPH % 49.8 % (24.0-44.0); NEUTROPHILS # 2.9 10^3/uL (1.8-7.7); NEUTROPHILS % 44.4 % (36.0-66.0); PLATELET COUNT, AUTOMATED 186.0 10^3/uL (150-450)
[2018-12-07] MEDS: EPOETIN ALFA 40000 UNIT/ML SC ONE (13:52)
[2018-12-07 13:57] VITALS: BP 166/83; TEMP 96.7; O2SAT 99
[2018-12-07 14:55] LABS: IRON (FE) 64 UG/DL (50-170); PERCENT SATURATION 32.0 % (13.2-45.0)
[2018-12-11 10:51] LABS: ALBUMIN % 49.2 % (55.8-66.1); ALPHA-1-GLOBULIN % 3.9 % (2.9-4.9); ALPHA-2-GLOBULINS % 13.1 % (7.1-11.8); BETA-1-GLOBULINS % 4.6 % (4.7-7.2); BETA-2-GLOBULINS % 3.6 % (3.2-6.5); GAMMA GLOBULIN % 25.6 % (11.1-18.8)
[2018-12-11 10:52] LABS: ALPHA-1-GLOBULINS 0.27 GM/DL (0.17-0.41); ALPHA-2-GLOBULINS 0.90 GM/DL (0.42-0.99); BETA-1-GLOBULINS 0.32 GM/DL (0.28-0.60); BETA-2-GLOBULINS 0.25 GM/DL (0.19-0.55); GAMMA GLOBULINS 1.77 GM/DL (0.65-1.58)
[2019-01-02 08:20] LABS: LYMPH % 49.8 % (24.0-44.0); NEUTROPHILS # 2.9 10^3/uL (1.8-7.7); NEUTROPHILS % 42.4 % (36.0-66.0); PLATELET COUNT, AUTOMATED 203.0 10^3/uL (150-450)
[2019-01-02 08:32] VITALS: BP 170/63; TEMP 97.3; O2SAT 98
[2019-01-02] MEDS: EPOETIN ALFA 40000 UNIT/ML SC ONE (08:34)
[2019-01-02 09:37] LABS: IRON (FE) 69 UG/DL (50-170); PERCENT SATURATION 31.4 % (13.2-45.0)
[2019-01-03 10:09] LABS: ALBUMIN % 49.0 % (55.8-66.1); ALPHA-1-GLOBULIN % 3.8 % (2.9-4.9); ALPHA-1-GLOBULINS 0.28 GM/DL (0.17-0.41); ALPHA-2-GLOBULINS 0.91 GM/DL (0.42-0.99); ALPHA-2-GLOBULINS % 12.5 % (7.1-11.8); BETA-1-GLOBULINS 0.36 GM/DL (0.28-0.60); BETA-1-GLOBULINS % 4.9 % (4.7-7.2); BETA-2-GLOBULINS 0.27 GM/DL (0.19-0.55); BETA-2-GLOBULINS % 3.7 % (3.2-6.5); GAMMA GLOBULIN % 26.1 % (11.1-18.8); GAMMA GLOBULINS 1.91 GM/DL (0.65-1.58)
[2019-02-01] MEDS: EPOETIN 40,000 UNIT/ML SC ONE (10:30)
[2019-02-01 10:58] VITALS: BP 146/86; TEMP 96.6; O2SAT 96
[2019-02-01 11:02] LABS: LYMPH % 54.6 % (24.0-44.0); NEUTROPHILS # 2.6 10^3/uL (1.8-7.7); NEUTROPHILS % 39.1 % (36.0-66.0); PLATELET COUNT, AUTOMATED 189.0 10^3/uL (150-450)
[2019-02-01 13:20] LABS: IRON (FE) 66 UG/DL (50-170); PERCENT SATURATION 31.1 % (13.2-45.0)
[2019-02-05 14:42] LABS: ALBUMIN % 47.9 % (55.8-66.1); ALPHA-1-GLOBULIN % 4.0 % (2.9-4.9); ALPHA-2-GLOBULINS % 12.9 % (7.1-11.8); BETA-1-GLOBULINS % 4.8 % (4.7-7.2); BETA-2-GLOBULINS % 3.9 % (3.2-6.5); GAMMA GLOBULIN % 26.5 % (11.1-18.8)
[2019-02-05 14:43] LABS: ALPHA-1-GLOBULINS 0.29 GM/DL (0.17-0.41); ALPHA-2-GLOBULINS 0.94 GM/DL (0.42-0.99); BETA-1-GLOBULINS 0.35 GM/DL (0.28-0.60); BETA-2-GLOBULINS 0.28 GM/DL (0.19-0.55); GAMMA GLOBULINS 1.93 GM/DL (0.65-1.58)
[2019-03-06 10:24] LABS: LYMPH % 53.1 % (24.0-44.0); NEUTROPHILS # 3.3 10^3/uL (1.8-7.7); NEUTROPHILS % 41.3 % (36.0-66.0); PLATELET COUNT, AUTOMATED 202.0 10^3/uL (150-450)
[2019-03-06 10:38] VITALS: BP 151/58; TEMP 96.5; O2SAT 99
[2019-03-06] MEDS: EPOETIN 40,000 UNIT/ML SC ONE (10:40)
[2019-04-03 09:57] LABS: BASO # 0.0 10^3/uL (0.0-0.2); BASO % 0.7 % (0.0-1.0); EOS # 0.2 10^3/uL (0.0-0.50); EOS % 4.3 % (0.0-3.0); LYMPH # 3.1 10^3/uL (1.5-4.5); LYMPH % 55.5 % (24.0-44.0); MONO # 0.2 10^3/uL (0.0-0.8); MONO % 3.9 % (0.0-5.0); NEUTROPHILS # 2.0 10^3/uL (1.8-7.7); NEUTROPHILS % 35.6 % (36.0-66.0); PLATELET COUNT, AUTOMATED 163 10^3/uL (150-450)
[2019-04-03] MEDS: EPOETIN 40,000 UNIT/ML SC ONE (10:09)
[2019-04-03 10:14] VITALS: BP 162/63; TEMP 98; O2SAT 100
[2019-05-09 09:06] VITALS: BP 193/72; TEMP 97.6; O2SAT 97
[2019-05-09 09:20] LABS: LYMPH % 55.5 % (24.0-44.0); NEUTROPHILS # 2.1 10^3/uL (1.8-7.7); NEUTROPHILS % 39.0 % (36.0-66.0); PLATELET COUNT, AUTOMATED 157.0 10^3/uL (150-450)
[2019-05-09 09:35] LABS: CARBON DIOXIDE LEVEL 27.0 MEQ/L (23-31); CHLORIDE LEVEL 108.0 MMOL/L (98-107); CREATININE FOR GFR 1.81 MG/DL (0.60-1.10); GLOMERULAR FILTRATION RATE 28.4 (>32); SODIUM LEVEL 140.0 MMOL/L (135-145)
[2019-05-09] MEDS: EPOETIN ALFA 40000 UNIT/ML SC PRN (10:06)
[2019-05-09 10:53] LABS: IRON (FE) 72.0 UG/DL (50-170); PERCENT SATURATION 35.1 % (13.2-45.0)
[2019-05-14 13:49] LABS: LYMPH % 57.0 % (24.0-44.0); NEUTROPHILS # 3.0 10^3/uL (1.8-7.7); NEUTROPHILS % 37.5 % (36.0-66.0); PLATELET COUNT, AUTOMATED 197.0 10^3/uL (150-450)
[2019-05-14 14:00] VITALS: BP 188/80; TEMP 97.6; O2SAT 98
[2019-05-14 14:05] LABS: CARBON DIOXIDE LEVEL 28 MEQ/L (23-31); CHLORIDE LEVEL 105 MMOL/L (98-107); CREATININE FOR GFR 1.46 MG/DL (0.60-1.10); GLOMERULAR FILTRATION RATE 36.4 (>32); SODIUM LEVEL 139 MMOL/L (135-145)
[2019-06-12 11:09] LABS: LYMPH % 47.4 % (24.0-44.0); NEUTROPHILS # 4.2 10^3/uL (1.8-7.7); NEUTROPHILS % 47.1 % (36.0-66.0); PLATELET COUNT, AUTOMATED 185.0 10^3/uL (150-450)
[2019-06-12] MEDS: EPOETIN ALFA 40000 UNIT/ML SC ONE (11:16)
[2019-06-12 12:29] LABS: IRON (FE) 100 UG/DL (50-170); PERCENT SATURATION 43.9 % (13.2-45.0)
[2019-06-13 12:45] LABS: ALBUMIN % 48.0 % (55.8-66.1); ALPHA-1-GLOBULIN % 3.6 % (2.9-4.9); ALPHA-1-GLOBULINS 0.28 GM/DL (0.17-0.41); ALPHA-2-GLOBULINS 1.05 GM/DL (0.42-0.99); ALPHA-2-GLOBULINS % 13.6 % (7.1-11.8); BETA-1-GLOBULINS 0.34 GM/DL (0.28-0.60); BETA-1-GLOBULINS % 4.4 % (4.7-7.2); BETA-2-GLOBULINS 0.28 GM/DL (0.19-0.55); BETA-2-GLOBULINS % 3.7 % (3.2-6.5); GAMMA GLOBULIN % 26.7 % (11.1-18.8); GAMMA GLOBULINS 2.06 GM/DL (0.65-1.58)
[2019-07-18 11:20] LABS: BASO # 0.0 10^3/uL (0.0-0.2); BASO % 0.3 % (0.0-1.0); EOS # 0.2 10^3/uL (0.0-0.5); EOS % 3.0 % (0.0-3.0); LYMPH # 3.6 10^3/uL (1.5-5.0); LYMPH % 50.7 % (24.0-44.0); MONO # 0.2 10^3/uL (0.0-0.8); MONO % 3.1 % (0.0-5.0); NEUTROPHILS # 3.0 10^3/uL (1.5-8.5); NEUTROPHILS % 42.6 % (36.0-66.0); PLATELET COUNT, AUTOMATED 175 10^3/uL (150-450)
[2019-07-18 11:52] VITALS: BP 174/75; TEMP 97.4; O2SAT 98
[2019-07-18 12:06] LABS: IRON (FE) 80 UG/DL (50-170); PERCENT SATURATION 40.8 % (13.2-45.0)
[2019-07-18] MEDS: EPOETIN ALFA 40000 UNIT/ML SC ONE (12:36)
[2019-07-19 13:02] LABS: ALBUMIN % 49.8 % (55.8-66.1); ALPHA-1-GLOBULIN % 3.6 % (2.9-4.9); ALPHA-1-GLOBULINS 0.26 GM/DL (0.17-0.41); ALPHA-2-GLOBULINS 0.95 GM/DL (0.42-0.99); ALPHA-2-GLOBULINS % 13.4 % (7.1-11.8); BETA-1-GLOBULINS 0.31 GM/DL (0.28-0.60); BETA-1-GLOBULINS % 4.3 % (4.7-7.2); BETA-2-GLOBULINS 0.26 GM/DL (0.19-0.55); BETA-2-GLOBULINS % 3.6 % (3.2-6.5); GAMMA GLOBULIN % 25.3 % (11.1-18.8); GAMMA GLOBULINS 1.80 GM/DL (0.65-1.58)
[2019-08-19 14:09] LABS: BASO # 0.1 10^3/uL (0.0-0.2); BASO % 0.4 % (0.0-1.0); EOS # 0.5 10^3/uL (0.0-0.5); EOS % 3.9 % (0.0-3.0); LYMPH % 41.6 % (24.0-44.0); MONO # 0.5 10^3/uL (0.0-0.8); MONO % 4.4 % (0.0-5.0); NEUTROPHILS # 5.9 10^3/uL (1.5-8.5); NEUTROPHILS % 48.7 % (36.0-66.0); PLATELET COUNT, AUTOMATED 241 10^3/uL (150-450)
[2019-08-19 14:11] LABS: LYMPH # 5.1 10^3/uL (1.5-5.0)
[2019-08-19 14:26] VITALS: BP 148/70; TEMP 97.5; O2SAT 98
[2019-08-19 14:40] LABS: ALT/SGPT 22.0 U/L (12-78); AST/SGOT 32.0 U/L (7-37); CALCIUM LEVEL 9.3 MG/DL (8.8-10.2); CARBON DIOXIDE LEVEL 27.0 MEQ/L (21-32); CHLORIDE LEVEL 107.0 MEQ/L (98-107); CREATININE FOR GFR 1.77 MG/DL (0.55-1.30); GLOMERULAR FILTRATION RATE 29.2 (>32); POTASSIUM SERUM 3.9 MEQ/L (3.5-5.1); SODIUM LEVEL 140.0 MEQ/L (136-145)
[2019-08-19] MEDS: EPOETIN ALFA 40000 UNIT/ML SC ONE (15:25)
[2019-09-16 13:51] VITALS: BP 142/78; TEMP 97.8; O2SAT 100
[2019-09-16 14:08] LABS: BASO # 0.0 10^3/uL (0.0-0.2); BASO % 0.6 % (0.0-1.0); EOS # 0.2 10^3/uL (0.0-0.5); EOS % 3.3 % (0.0-3.0); LYMPH # 4.1 10^3/uL (1.5-5.0); LYMPH % 59.0 % (24.0-44.0); MONO # 0.3 10^3/uL (0.0-0.8); MONO % 4.0 % (0.0-5.0); NEUTROPHILS # 2.3 10^3/uL (1.5-8.5); NEUTROPHILS % 33.0 % (36.0-66.0); PLATELET COUNT, AUTOMATED 197 10^3/uL (150-450)
[2019-09-16 14:37] LABS: ALT/SGPT 15.0 U/L (12-78); AST/SGOT 26.0 U/L (7-37); CALCIUM LEVEL 9.2 MG/DL (8.8-10.2); CARBON DIOXIDE LEVEL 27.0 MEQ/L (21-32); CHLORIDE LEVEL 110.0 MEQ/L (98-107); CREATININE FOR GFR 1.56 MG/DL (0.55-1.30); GLOMERULAR FILTRATION RATE 33.7 (>32); IRON (FE) 67.0 UG/DL (50-170); PERCENT SATURATION 32.4 % (13.2-45.0); POTASSIUM SERUM 4.2 MEQ/L (3.5-5.1); SODIUM LEVEL 142.0 MEQ/L (136-145)
[2019-09-16] MEDS: EPOETIN ALFA 40000 UNIT/ML SC ONE (15:11)
[2019-10-09 11:52] LABS: BASO # 0.0 10^3/uL (0.0-0.2); BASO % 0.6 % (0.0-1.0); EOS # 0.3 10^3/uL (0.0-0.5); EOS % 5.2 % (0.0-3.0); LYMPH # 3.0 10^3/uL (1.5-5.0); LYMPH % 47.9 % (24.0-44.0); MONO # 0.2 10^3/uL (0.0-0.8); MONO % 3.0 % (0.0-5.0); NEUTROPHILS # 2.7 10^3/uL (1.5-8.5); NEUTROPHILS % 43.0 % (36.0-66.0); PLATELET COUNT, AUTOMATED 189 10^3/uL (150-450)
[2019-10-09] MEDS: EPOETIN ALFA 40000 UNIT/ML SC ONE (11:54)
[2019-11-20 14:41] VITALS: BP 171/80; O2SAT 98
[2019-11-20] MEDS: EPOETIN ALFA 40000 UNIT/ML SC ONE (14:57)
[2019-11-27 08:40] LABS: BASO # 0.0 10^3/uL (0.0-0.2); BASO % 0.5 % (0.0-1.0); EOS # 0.3 10^3/uL (0.0-0.5); EOS % 4.3 % (0.0-3.0); LYMPH # 3.5 10^3/uL (1.5-5.0); LYMPH % 55.5 % (24.0-44.0); MONO # 0.2 10^3/uL (0.0-0.8); MONO % 3.8 % (0.0-5.0); NEUTROPHILS # 2.2 10^3/uL (1.5-8.5); NEUTROPHILS % 35.7 % (36.0-66.0); PLATELET COUNT, AUTOMATED 181 10^3/uL (150-450)
[2019-11-27] MEDS: EPOETIN ALFA 40000 UNIT/ML SC ONE (08:58)
[2019-11-27 09:03] VITALS: BP 152/68; O2SAT 98
[2019-12-04] MEDS: EPOETIN ALFA 40000 UNIT/ML SC ONE (09:05)
[2019-12-19] MEDS: EPOETIN ALFA 40000 UNIT/ML SC ONE (10:00)
[2020-01-20 11:45] VITALS: BP 148/86; O2SAT 98
[2020-01-20] MEDS: EPOETIN ALFA 40000 UNIT/ML SC ONE (12:34)
[2020-02-20] MEDS: EPOETIN ALFA 40000 UNIT/ML SC ONE (10:32)
[2020-04-21 12:04] VITALS: BP 198/89; O2SAT 99
[2020-04-21] MEDS: EPOETIN ALFA 40000 UNIT/ML SC ONE (13:23)
[2020-05-05 13:30] LABS: SOLUBLE TRANSFERRIN RECEPTOR SEE SEPARATE REPORT
[2020-05-19 13:45] LABS: BASO # 0.0 10^3/uL (0.0-0.2); BASO % 0.4 % (0.0-1.0); EOS # 0.2 10^3/uL (0.0-0.5); EOS % 2.2 % (0.0-3.0); LYMPH # 3.8 10^3/uL (1.5-5.0); LYMPH % 54.4 % (24.0-44.0); MONO # 0.2 10^3/uL (0.0-0.8); MONO % 3.3 % (0.0-5.0); NEUTROPHILS # 2.7 10^3/uL (1.5-8.5); NEUTROPHILS % 39.6 % (36.0-66.0); PLATELET COUNT, AUTOMATED 165 10^3/uL (150-450)
[2020-05-19] MEDS: EPOETIN ALFA 40000 UNIT/ML SC ONE (14:07)
[2020-06-16] MEDS: EPOETIN ALFA 40000 UNIT/ML SC SCH (14:37)
[2020-06-20 10:50] LABS: ALT/SGPT 21 U/L (12-78); AST/SGOT 32 U/L (7-37); CALCIUM LEVEL 9.2 MG/DL (8.8-10.2); CARBON DIOXIDE LEVEL 28 MEQ/L (21-32); CHLORIDE LEVEL 110 MEQ/L (98-107); CREATININE FOR GFR 1.67 MG/DL (0.55-1.30); GLOMERULAR FILTRATION RATE 31.1 (>32); IRON (FE) 74 UG/DL (50-170); POTASSIUM SERUM 4.1 MEQ/L (3.5-5.1); SODIUM LEVEL 142 MEQ/L (136-145); VITAMIN B12 LEVEL > 2000 PG/ML
[2020-07-16 13:00] VITALS: BP 180/77; O2SAT 98
[2020-07-16] MEDS: EPOETIN ALFA 40000 UNIT/ML SC SCH (13:43)
[2020-08-13] MEDS: EPOETIN ALFA 40000 UNIT/ML SC SCH (11:57)
[2020-09-11 13:02] LABS: BASO # 0.0 10^3/uL (0.0-0.2); BASO % 0.3 % (0.0-1.0); EOS # 0.4 10^3/uL (0.0-0.5); EOS % 5.7 % (0.0-3.0); LYMPH # 3.6 10^3/uL (1.5-5.0); LYMPH % 49.7 % (24.0-44.0); MONO # 0.3 10^3/uL (0.0-0.8); MONO % 3.9 % (0.0-5.0); NEUTROPHILS # 2.9 10^3/uL (1.5-8.5); NEUTROPHILS % 40.3 % (36.0-66.0); PLATELET COUNT, AUTOMATED 177 10^3/uL (150-450)
[2020-09-11] MEDS: EPOETIN ALFA 40000 UNIT/ML SC SCH (13:28)
[2020-09-29 07:55] VITALS: BP 143/72; O2SAT 98
[2020-09-30 18:07] LABS: FREE KAPPA LIGHT CHAINS SERUMX 134.4 mg/L (3.3-19.4); FREE LAMBDA LIGHT CHAINSX 13.9 mg/L (5.7-26.3); KAPPA/LAMBDA RATIO SERUMX 9.67 (0.26-1.65)
[2020-10-02 10:34] LABS: ALBUMIN % 47.8 % (55.8-66.1); ALPHA-1-GLOBULIN % 4.0 % (2.9-4.9); ALPHA-1-GLOBULINS 0.31 GM/DL (0.17-0.41); ALPHA-2-GLOBULINS 0.90 GM/DL (0.42-0.99); ALPHA-2-GLOBULINS % 11.7 % (7.1-11.8); BETA-1-GLOBULINS 0.31 GM/DL (0.28-0.60); BETA-1-GLOBULINS % 4.0 % (4.7-7.2); BETA-2-GLOBULINS 0.27 GM/DL (0.19-0.55); BETA-2-GLOBULINS % 3.5 % (3.2-6.5); GAMMA GLOBULIN % 29.0 % (11.1-18.8); GAMMA GLOBULINS 2.23 GM/DL (0.65-1.58)
[2020-10-08] MEDS: LIDOCAINE 2% MDV 20 ML VIAL SC ONE (08:20)
[2020-10-08 10:55] LABS: BASO # 0.0 10^3/uL (0.0-0.2); BASO % 0.5 % (0.0-1.0); EOS # 0.5 10^3/uL (0.0-0.5); EOS % 5.8 % (0.0-3.0); LYMPH # 4.5 10^3/uL (1.5-5.0); LYMPH % 54.8 % (24.0-44.0); MONO # 0.4 10^3/uL (0.0-0.8); MONO % 4.3 % (2.0-8.0); NEUTROPHILS # 2.8 10^3/uL (1.5-8.5); NEUTROPHILS % 34.2 % (36.0-66.0); PLATELET COUNT, AUTOMATED 193 10^3/uL (150-450)
[2020-10-08 11:25] VITALS: BP 163/66; O2SAT 97
[2020-10-12 12:15] LABS: BASO # 0.0 10^3/uL (0.0-0.2); BASO % 0.1 % (0.0-1.0); EOS # 0.2 10^3/uL (0.0-0.5); EOS % 2.0 % (0.0-3.0); LYMPH # 4.4 10^3/uL (1.5-5.0); LYMPH % 47.6 % (24.0-44.0); MONO # 0.3 10^3/uL (0.0-0.8); MONO % 3.3 % (2.0-8.0); NEUTROPHILS # 4.3 10^3/uL (1.5-8.5); NEUTROPHILS % 46.7 % (36.0-66.0); PLATELET COUNT, AUTOMATED 184 10^3/uL (150-450)
[2020-10-12] MEDS: EPOETIN ALFA 40000 UNIT/ML SC SCH (12:46)
[2020-10-23 09:22] LABS: BASO # 0.0 10^3/uL (0.0-0.2); BASO % 0.0 % (0.0-1.0); EOS # 0.0 10^3/uL (0.0-0.5); EOS % 0.0 % (0.0-3.0); LYMPH # 0.9 10^3/uL (1.5-5.0); LYMPH % 11.8 % (24.0-44.0); MONO # 0.0 10^3/uL (0.0-0.8); MONO % 0.4 % (2.0-8.0); NEUTROPHILS # 6.9 10^3/uL (1.5-8.5); NEUTROPHILS % 87.3 % (36.0-66.0); PLATELET COUNT, AUTOMATED 183 10^3/uL (150-450)
[2020-10-23 09:55] LABS: ALT/SGPT 24.0 U/L (12-78); AST/SGOT 23.0 U/L (7-37); CALCIUM LEVEL 9.4 MG/DL (8.8-10.2); CARBON DIOXIDE LEVEL 25.0 MEQ/L (21-32); CHLORIDE LEVEL 110.0 MEQ/L (98-107); CREATININE FOR GFR 2.22 MG/DL (0.55-1.30); GLOMERULAR FILTRATION RATE 22.4 (>32); POTASSIUM SERUM 3.7 MEQ/L (3.5-5.1); SODIUM LEVEL 141.0 MEQ/L (136-145)
[2020-10-23 10:17] VITALS: BP 150/78; O2SAT 98
[2020-10-24 18:07] LABS: FREE KAPPA LIGHT CHAINS SERUMX 104.8 mg/L (3.3-19.4); FREE LAMBDA LIGHT CHAINSX 9.7 mg/L (5.7-26.3); KAPPA/LAMBDA RATIO SERUMX 10.8 (0.26-1.65)
[2020-10-26 12:36] LABS: ALBUMIN % 51.6 % (55.8-66.1); ALPHA-1-GLOBULIN % 3.5 % (2.9-4.9); ALPHA-1-GLOBULINS 0.26 GM/DL (0.17-0.41); ALPHA-2-GLOBULINS 0.98 GM/DL (0.42-0.99); ALPHA-2-GLOBULINS % 13.0 % (7.1-11.8); BETA-1-GLOBULINS 0.35 GM/DL (0.28-0.60); BETA-1-GLOBULINS % 4.7 % (4.7-7.2); BETA-2-GLOBULINS 0.25 GM/DL (0.19-0.55); BETA-2-GLOBULINS % 3.3 % (3.2-6.5); GAMMA GLOBULIN % 23.9 % (11.1-18.8); GAMMA GLOBULINS 1.79 GM/DL (0.65-1.58)
[2020-11-12 10:17] VITALS: BP 152/66; O2SAT 98
[2020-11-12] MEDS: BORTEZOMIB for SC use (VELCADE) SC ONE (11:45)
[2020-11-19 11:17] VITALS: BP 159/77; O2SAT 94
[2020-11-19 11:20] LABS: BASO # 0.0 10^3/uL (0.0-0.2); BASO % 0.4 % (0.0-1.0); EOS # 0.2 10^3/uL (0.0-0.5); EOS % 3.0 % (0.0-3.0); LYMPH # 3.3 10^3/uL (1.5-5.0); LYMPH % 42.9 % (24.0-44.0); MONO # 0.3 10^3/uL (0.0-0.8); MONO % 4.0 % (2.0-8.0); NEUTROPHILS # 3.7 10^3/uL (1.5-8.5); NEUTROPHILS % 49.3 % (36.0-66.0); PLATELET COUNT, AUTOMATED 157 10^3/uL (150-450)
[2020-11-19] MEDS: BORTEZOMIB for SC use (VELCADE) SC ONE (12:19)
[2020-11-23 16:12] LABS: ERYTHROPOIETIN 8.6 mIU/mL (2.6-18.5); SOLUBLE TRANSFERRIN RECEPTOR 13.0 nmol/L (12.2-27.3)
[2020-11-26 08:30] VITALS: BP 156/77; O2SAT 99
[2020-11-26 08:32] LABS: BASO # 0.0 10^3/uL (0.0-0.2); BASO % 0.6 % (0.0-1.0); EOS # 0.2 10^3/uL (0.0-0.5); EOS % 3.3 % (0.0-3.0); LYMPH # 2.9 10^3/uL (1.5-5.0); LYMPH % 46.4 % (24.0-44.0); MONO # 0.2 10^3/uL (0.0-0.8); MONO % 3.3 % (2.0-8.0); NEUTROPHILS # 2.9 10^3/uL (1.5-8.5); NEUTROPHILS % 46.2 % (36.0-66.0); PLATELET COUNT, AUTOMATED 141 10^3/uL (150-450)
[2020-11-26] MEDS: BORTEZOMIB for SC use (VELCADE) SC ONE (09:27)
[2020-12-03 10:27] VITALS: BP 182/77; O2SAT 99
[2020-12-03 11:33] VITALS: BP 168/70
[2020-12-03] MEDS: BORTEZOMIB for SC use (VELCADE) SC ONE (11:46)
[2020-12-10 10:38] VITALS: BP 172/67; O2SAT 100
[2020-12-10 11:29] VITALS: BP 157/68
[2020-12-10] MEDS: BORTEZOMIB for SC use (VELCADE) SC ONE (12:15)
[2020-12-10] MEDS: EPOETIN ALFA 40000 UNIT/ML SC SCH (12:16)
[2020-12-17 10:05] VITALS: BP 177/82; O2SAT 97
[2020-12-17 10:06] LABS: BASO # 0.0 10^3/uL (0.0-0.2); BASO % 0.4 % (0.0-1.0); EOS # 0.1 10^3/uL (0.0-0.5); EOS % 2.0 % (0.0-3.0); LYMPH # 2.6 10^3/uL (1.5-5.0); LYMPH % 37.4 % (24.0-44.0); MONO # 0.2 10^3/uL (0.0-0.8); MONO % 3.2 % (2.0-8.0); NEUTROPHILS # 3.9 10^3/uL (1.5-8.5); NEUTROPHILS % 56.7 % (36.0-66.0); PLATELET COUNT, AUTOMATED 192 10^3/uL (150-450)
[2020-12-17 10:29] LABS: ALT/SGPT 27.0 U/L (12-78); AST/SGOT 34.0 U/L (7-37); CALCIUM LEVEL 9.6 MG/DL (8.8-10.2); CARBON DIOXIDE LEVEL 30.0 MEQ/L (21-32); CHLORIDE LEVEL 108.0 MEQ/L (98-107); CREATININE FOR GFR 1.72 MG/DL (0.55-1.30); GLOMERULAR FILTRATION RATE 30.1 (>32); POTASSIUM SERUM 3.8 MEQ/L (3.5-5.1); SODIUM LEVEL 141.0 MEQ/L (136-145)
[2020-12-17] MEDS: EPOETIN ALFA 40000 UNIT/ML SC SCH (11:24)
[2020-12-17] MEDS: BORTEZOMIB for SC use (VELCADE) SC ONE (11:26)
[2020-12-18 18:08] LABS: FREE KAPPA LIGHT CHAINS SERUMX 116.7 mg/L (3.3-19.4); FREE LAMBDA LIGHT CHAINSX 10.3 mg/L (5.7-26.3); KAPPA/LAMBDA RATIO SERUMX 11.33 (0.26-1.65)
[2020-12-21 13:36] LABS: ALBUMIN % 54.8 % (55.8-66.1); ALPHA-1-GLOBULIN % 3.7 % (2.9-4.9); ALPHA-2-GLOBULINS % 12.8 % (7.1-11.8); BETA-1-GLOBULINS % 4.8 % (4.7-7.2); BETA-2-GLOBULINS % 3.3 % (3.2-6.5)
[2020-12-21 13:37] LABS: ALPHA-1-GLOBULINS 0.26 GM/DL (0.17-0.41); ALPHA-2-GLOBULINS 0.88 GM/DL (0.42-0.99); BETA-1-GLOBULINS 0.33 GM/DL (0.28-0.60); BETA-2-GLOBULINS 0.23 GM/DL (0.19-0.55); GAMMA GLOBULIN % 20.6 % (11.1-18.8); GAMMA GLOBULINS 1.42 GM/DL (0.65-1.58)
[2020-12-24 10:10] LABS: BASO # 0.0 10^3/uL (0.0-0.2); BASO % 0.3 % (0.0-1.0); EOS # 0.1 10^3/uL (0.0-0.5); EOS % 1.6 % (0.0-3.0); LYMPH # 1.8 10^3/uL (1.5-5.0); LYMPH % 26.9 % (24.0-44.0); MONO # 0.1 10^3/uL (0.0-0.8); MONO % 1.9 % (2.0-8.0); NEUTROPHILS # 4.6 10^3/uL (1.5-8.5); NEUTROPHILS % 68.9 % (36.0-66.0); PLATELET COUNT, AUTOMATED 209 10^3/uL (150-450)
[2020-12-24 10:37] LABS: ALT/SGPT 28.0 U/L (12-78); AST/SGOT 31.0 U/L (7-37); CALCIUM LEVEL 9.6 MG/DL (8.8-10.2); CARBON DIOXIDE LEVEL 29.0 MEQ/L (21-32); CHLORIDE LEVEL 107.0 MEQ/L (98-107); CREATININE FOR GFR 1.71 MG/DL (0.55-1.30); GLOMERULAR FILTRATION RATE 30.3 (>32); POTASSIUM SERUM 3.4 MEQ/L (3.5-5.1); SODIUM LEVEL 141.0 MEQ/L (136-145)
[2020-12-24] MEDS: BORTEZOMIB for SC use (VELCADE) SC ONE (11:16)
[2020-12-24 11:38] VITALS: BP 158/77; O2SAT 99
[2020-12-31 09:57] LABS: BASO # 0.0 10^3/uL (0.0-0.2); BASO % 0.6 % (0.0-1.0); EOS # 0.1 10^3/uL (0.0-0.5); EOS % 2.7 % (0.0-3.0); LYMPH # 2.6 10^3/uL (1.5-5.0); LYMPH % 49.8 % (24.0-44.0); MONO # 0.2 10^3/uL (0.0-0.8); MONO % 4.6 % (2.0-8.0); NEUTROPHILS # 2.2 10^3/uL (1.5-8.5); NEUTROPHILS % 42.1 % (36.0-66.0); PLATELET COUNT, AUTOMATED 191 10^3/uL (150-450)
[2020-12-31 10:10] VITALS: BP 168/72; O2SAT 99
[2020-12-31] MEDS: EPOETIN ALFA 40000 UNIT/ML SC SCH (10:47)
[2020-12-31] MEDS: BORTEZOMIB for SC use (VELCADE) SC ONE (10:48)
[2021-01-07 13:13] LABS: BASO # 0.0 10^3/uL (0.0-0.2); BASO % 0.4 % (0.0-1.0); EOS # 0.1 10^3/uL (0.0-0.5); EOS % 0.7 % (0.0-3.0); LYMPH # 1.5 10^3/uL (1.5-5.0); LYMPH % 21.1 % (24.0-44.0); MONO # 0.1 10^3/uL (0.0-0.8); MONO % 1.4 % (2.0-8.0); NEUTROPHILS # 5.5 10^3/uL (1.5-8.5); NEUTROPHILS % 76.1 % (36.0-66.0); PLATELET COUNT, AUTOMATED 204 10^3/uL (150-450)
[2021-01-07 13:24] VITALS: BP 166/71; O2SAT 98
[2021-01-07 13:38] LABS: AST/SGOT 37.0 U/L (7-37); CALCIUM LEVEL 10.7 MG/DL (8.8-10.2); CARBON DIOXIDE LEVEL 28.0 MEQ/L (21-32); CHLORIDE LEVEL 107.0 MEQ/L (98-107); CREATININE FOR GFR 1.86 MG/DL (0.55-1.30); GLOMERULAR FILTRATION RATE 27.5 (>32); POTASSIUM SERUM 3.8 MEQ/L (3.5-5.1); SODIUM LEVEL 140.0 MEQ/L (136-145)
[2021-01-07 13:39] LABS: ALT/SGPT 54.0 U/L (12-78)
[2021-01-07] MEDS: BORTEZOMIB for SC use (VELCADE) SC ONE (14:31)
[2021-01-14 13:12] VITALS: BP 159/72; O2SAT 97
[2021-01-14 13:12] LABS: BASO # 0.1 10^3/uL (0.0-0.2); BASO % 0.8 % (0.0-1.0); EOS # 0.2 10^3/uL (0.0-0.5); EOS % 2.4 % (0.0-3.0); LYMPH # 2.3 10^3/uL (1.5-5.0); LYMPH % 36.3 % (24.0-44.0); MONO # 0.2 10^3/uL (0.0-0.8); MONO % 3.5 % (2.0-8.0); NEUTROPHILS # 3.6 10^3/uL (1.5-8.5); NEUTROPHILS % 56.7 % (36.0-66.0)
[2021-01-14 13:42] LABS: ALT/SGPT 31.0 U/L (12-78); AST/SGOT 34.0 U/L (7-37); CALCIUM LEVEL 10.3 MG/DL (8.8-10.2); CARBON DIOXIDE LEVEL 28.0 MEQ/L (21-32); CHLORIDE LEVEL 109.0 MEQ/L (98-107); CREATININE FOR GFR 1.69 MG/DL (0.55-1.30); GLOMERULAR FILTRATION RATE 30.7 (>32); POTASSIUM SERUM 4.0 MEQ/L (3.5-5.1); SODIUM LEVEL 143.0 MEQ/L (136-145)
[2021-01-14] MEDS: BORTEZOMIB for SC use (VELCADE) SC ONE (14:36)
[2021-01-19 17:08] LABS: FREE KAPPA LIGHT CHAINS SERUMX 140.7 mg/L (3.3-19.4); FREE LAMBDA LIGHT CHAINSX 10.5 mg/L (5.7-26.3); KAPPA/LAMBDA RATIO SERUMX 13.4 (0.26-1.65)
[2021-01-21 13:06] VITALS: BP 166/77; O2SAT 97
[2021-01-21 13:08] LABS: BASO # 0.0 10^3/uL (0.0-0.2); BASO % 0.6 % (0.0-1.0); EOS # 0.1 10^3/uL (0.0-0.5); EOS % 0.9 % (0.0-3.0); LYMPH # 1.3 10^3/uL (1.5-5.0); LYMPH % 18.7 % (24.0-44.0); MONO # 0.1 10^3/uL (0.0-0.8); MONO % 1.5 % (2.0-8.0); NEUTROPHILS # 5.2 10^3/uL (1.5-8.5); NEUTROPHILS % 78.2 % (36.0-66.0); PLATELET COUNT, AUTOMATED 154 10^3/uL (150-450)
[2021-01-21 13:36] LABS: ALT/SGPT 31 U/L (12-78); AST/SGOT 39 U/L (7-37); CALCIUM LEVEL 10.2 MG/DL (8.8-10.2); CARBON DIOXIDE LEVEL 27 MEQ/L (21-32); CHLORIDE LEVEL 107 MEQ/L (98-107); CREATININE FOR GFR 1.95 MG/DL (0.55-1.30); GLOMERULAR FILTRATION RATE 26.0 (>32); POTASSIUM SERUM 3.8 MEQ/L (3.5-5.1); SODIUM LEVEL 143 MEQ/L (136-145)
[2021-01-21] MEDS: BORTEZOMIB for SC use (VELCADE) SC ONE (13:59)
[2021-01-22 17:19] LABS: FREE KAPPA LIGHT CHAINS SERUMX 122.7 mg/L (3.3-19.4); FREE LAMBDA LIGHT CHAINSX 10.7 mg/L (5.7-26.3); KAPPA/LAMBDA RATIO SERUMX 11.47 (0.26-1.65)
[2021-01-25 13:12] LABS: ALBUMIN % 56.3 % (55.8-66.1); ALPHA-1-GLOBULIN % 3.8 % (2.9-4.9); ALPHA-1-GLOBULINS 0.27 GM/DL (0.17-0.41); ALPHA-2-GLOBULINS 0.87 GM/DL (0.42-0.99); ALPHA-2-GLOBULINS % 12.2 % (7.1-11.8); BETA-1-GLOBULINS 0.34 GM/DL (0.28-0.60); BETA-1-GLOBULINS % 4.8 % (4.7-7.2); BETA-2-GLOBULINS 0.23 GM/DL (0.19-0.55); BETA-2-GLOBULINS % 3.3 % (3.2-6.5); GAMMA GLOBULIN % 19.6 % (11.1-18.8); GAMMA GLOBULINS 1.39 GM/DL (0.65-1.58)
[2021-01-25 13:33] LABS: IMMUNOTYPING SERUM IGG ABNORMAL (NORMAL); IMMUNOTYPING SERUM KAPPA ABNORMAL (NORMAL)
[2021-01-28 13:26] LABS: BASO # 0.0 10^3/uL (0.0-0.2); BASO % 0.4 % (0.0-1.0); EOS # 0.1 10^3/uL (0.0-0.5); EOS % 1.9 % (0.0-3.0); LYMPH # 1.9 10^3/uL (1.5-5.0); LYMPH % 27.0 % (24.0-44.0); MONO # 0.1 10^3/uL (0.0-0.8); MONO % 1.6 % (2.0-8.0); NEUTROPHILS # 4.7 10^3/uL (1.5-8.5); NEUTROPHILS % 68.8 % (36.0-66.0); PLATELET COUNT, AUTOMATED 146 10^3/uL (150-450)
[2021-01-28 13:42] VITALS: BP 173/76; O2SAT 98
[2021-01-28 13:47] LABS: ALT/SGPT 34.0 U/L (12-78); AST/SGOT 38.0 U/L (7-37); CALCIUM LEVEL 10.6 MG/DL (8.8-10.2); CARBON DIOXIDE LEVEL 29.0 MEQ/L (21-32); CHLORIDE LEVEL 109.0 MEQ/L (98-107); CREATININE FOR GFR 1.6 MG/DL (0.55-1.30); GLOMERULAR FILTRATION RATE 32.7 (>32); POTASSIUM SERUM 3.9 MEQ/L (3.5-5.1); SODIUM LEVEL 142.0 MEQ/L (136-145)
[2021-01-28] MEDS: BORTEZOMIB for SC use (VELCADE) SC ONE (14:13)
[2021-02-02 10:44] VITALS: BP 183/79; O2SAT 98
[2021-02-04 09:11] LABS: BASO # 0.0 10^3/uL (0.0-0.2); BASO % 0.5 % (0.0-1.0); EOS # 0.2 10^3/uL (0.0-0.5); EOS % 3.0 % (0.0-3.0); LYMPH # 3.2 10^3/uL (1.5-5.0); LYMPH % 51.3 % (24.0-44.0); MONO # 0.3 10^3/uL (0.0-0.8); MONO % 4.0 % (2.0-8.0); NEUTROPHILS # 2.6 10^3/uL (1.5-8.5); NEUTROPHILS % 41.0 % (36.0-66.0); PLATELET COUNT, AUTOMATED 140 10^3/uL (150-450)
[2021-02-04 09:30] VITALS: BP 181/73; O2SAT 98
[2021-02-04 09:36] LABS: ALT/SGPT 29.0 U/L (12-78); AST/SGOT 37.0 U/L (7-37); CALCIUM LEVEL 10.1 MG/DL (8.8-10.2); CARBON DIOXIDE LEVEL 28.0 MEQ/L (21-32); CHLORIDE LEVEL 109.0 MEQ/L (98-107); CREATININE FOR GFR 1.75 MG/DL (0.55-1.30); GLOMERULAR FILTRATION RATE 29.5 (>32); POTASSIUM SERUM 3.6 MEQ/L (3.5-5.1); SODIUM LEVEL 141.0 MEQ/L (136-145)
[2021-02-04] MEDS: EPOETIN ALFA 40000 UNIT/ML SC SCH (10:50)
[2021-02-04] MEDS: BORTEZOMIB for SC use (VELCADE) SC ONE (10:51)
[2021-02-11 10:35] VITALS: BP 185/89; O2SAT 98
[2021-02-11 10:56] LABS: BASO # 0.0 10^3/uL (0.0-0.2); BASO % 0.3 % (0.0-1.0); EOS # 0.1 10^3/uL (0.0-0.5); EOS % 0.9 % (0.0-3.0); LYMPH # 1.2 10^3/uL (1.5-5.0); LYMPH % 17.4 % (24.0-44.0); MONO # 0.1 10^3/uL (0.0-0.8); MONO % 1.6 % (2.0-8.0); NEUTROPHILS # 5.4 10^3/uL (1.5-8.5); NEUTROPHILS % 79.4 % (36.0-66.0); PLATELET COUNT, AUTOMATED 171 10^3/uL (150-450)
[2021-02-11 11:31] LABS: ALT/SGPT 225.0 U/L (12-78); AST/SGOT 96.0 U/L (7-37); CALCIUM LEVEL 9.8 MG/DL (8.8-10.2); CARBON DIOXIDE LEVEL 24.0 MEQ/L (21-32); CHLORIDE LEVEL 109.0 MEQ/L (98-107); CREATININE FOR GFR 1.79 MG/DL (0.55-1.30); GLOMERULAR FILTRATION RATE 28.7 (>32); POTASSIUM SERUM 3.7 MEQ/L (3.5-5.1); SODIUM LEVEL 141.0 MEQ/L (136-145)
[2021-02-11] MEDS: BORTEZOMIB for SC use (VELCADE) SC ONE (11:58)
[2021-02-12 18:07] LABS: FREE KAPPA LIGHT CHAINS SERUMX 120.2 mg/L (3.3-19.4); FREE LAMBDA LIGHT CHAINSX 10.2 mg/L (5.7-26.3); KAPPA/LAMBDA RATIO SERUMX 11.78 (0.26-1.65)
[2021-02-15 11:16] LABS: ALBUMIN % 55.8 % (55.8-66.1); ALPHA-1-GLOBULIN % 3.9 % (2.9-4.9); ALPHA-1-GLOBULINS 0.28 GM/DL (0.17-0.41); ALPHA-2-GLOBULINS 0.92 GM/DL (0.42-0.99); ALPHA-2-GLOBULINS % 12.9 % (7.1-11.8); BETA-1-GLOBULINS 0.36 GM/DL (0.28-0.60)
[2021-02-15 11:17] LABS: BETA-1-GLOBULINS % 5.1 % (4.7-7.2); BETA-2-GLOBULINS 0.24 GM/DL (0.19-0.55); BETA-2-GLOBULINS % 3.4 % (3.2-6.5); GAMMA GLOBULIN % 18.9 % (11.1-18.8); GAMMA GLOBULINS 1.34 GM/DL (0.65-1.58)
[2021-02-18 10:05] LABS: BASO # 0.0 10^3/uL (0.0-0.2); BASO % 0.4 % (0.0-1.0); EOS # 0.3 10^3/uL (0.0-0.5); EOS % 4.5 % (0.0-3.0); LYMPH # 1.9 10^3/uL (1.5-5.0); LYMPH % 33.7 % (24.0-44.0); MONO # 0.2 10^3/uL (0.0-0.8); MONO % 2.9 % (2.0-8.0); NEUTROPHILS # 3.3 10^3/uL (1.5-8.5); NEUTROPHILS % 58.1 % (36.0-66.0); PLATELET COUNT, AUTOMATED 173 10^3/uL (150-450)
[2021-02-18 10:35] VITALS: BP 176/76; O2SAT 100
[2021-02-18] MEDS: BORTEZOMIB for SC use (VELCADE) SC ONE (10:52)
[2021-02-25 09:55] LABS: BASO # 0.0 10^3/uL (0.0-0.2); BASO % 0.5 % (0.0-1.0); EOS # 0.2 10^3/uL (0.0-0.5); EOS % 2.7 % (0.0-3.0); LYMPH # 2.0 10^3/uL (1.5-5.0); LYMPH % 31.1 % (24.0-44.0); MONO # 0.2 10^3/uL (0.0-0.8); MONO % 3.2 % (2.0-8.0); NEUTROPHILS # 4.1 10^3/uL (1.5-8.5); NEUTROPHILS % 62.2 % (36.0-66.0); PLATELET COUNT, AUTOMATED 163 10^3/uL (150-450)
[2021-02-25 10:00] VITALS: BP 181/82; O2SAT 98
[2021-02-25 10:26] LABS: ALT/SGPT 120.0 U/L (12-78); AST/SGOT 67.0 U/L (7-37); CALCIUM LEVEL 9.7 MG/DL (8.8-10.2); CARBON DIOXIDE LEVEL 28.0 MEQ/L (21-32); CHLORIDE LEVEL 108.0 MEQ/L (98-107); CREATININE FOR GFR 1.73 MG/DL (0.55-1.30); GLOMERULAR FILTRATION RATE 29.9 (>32); POTASSIUM SERUM 4.0 MEQ/L (3.5-5.1); SODIUM LEVEL 141.0 MEQ/L (136-145)
[2021-02-25] MEDS: BORTEZOMIB for SC use (VELCADE) SC ONE (11:17)
[2021-03-04 09:31] LABS: BASO # 0.0 10^3/uL (0.0-0.2); BASO % 0.4 % (0.0-1.0); EOS # 0.2 10^3/uL (0.0-0.5); EOS % 2.1 % (0.0-3.0); LYMPH # 1.8 10^3/uL (1.5-5.0); LYMPH % 25.9 % (24.0-44.0); MONO # 0.1 10^3/uL (0.0-0.8); MONO % 1.8 % (2.0-8.0); NEUTROPHILS # 4.9 10^3/uL (1.5-8.5); NEUTROPHILS % 69.5 % (36.0-66.0); PLATELET COUNT, AUTOMATED 179 10^3/uL (150-450)
[2021-03-04 09:53] LABS: ALT/SGPT 65.0 U/L (12-78); AST/SGOT 39.0 U/L (7-37); CALCIUM LEVEL 9.2 MG/DL (8.8-10.2); CARBON DIOXIDE LEVEL 27.0 MEQ/L (21-32); CHLORIDE LEVEL 110.0 MEQ/L (98-107); CREATININE FOR GFR 1.87 MG/DL (0.55-1.30); GLOMERULAR FILTRATION RATE 27.3 (>32); POTASSIUM SERUM 3.8 MEQ/L (3.5-5.1); SODIUM LEVEL 144.0 MEQ/L (136-145)
[2021-03-04 10:19] VITALS: BP 170/72; O2SAT 98
[2021-03-04] MEDS: BORTEZOMIB for SC use (VELCADE) SC ONE (11:07)
[2021-03-11] MEDS: BORTEZOMIB for SC use (VELCADE) SC ONE (10:30)
[2021-03-11 10:45] VITALS: BP 154/79; O2SAT 98
[2021-03-11] MEDS: [UNRECOGNIZED DRUG - REMARK] SQ SCH (11:52)
[2021-03-12 10:54] LABS: ALBUMIN % 54.8 % (55.8-66.1); ALPHA-1-GLOBULIN % 3.7 % (2.9-4.9); ALPHA-2-GLOBULINS % 13.8 % (7.1-11.8); BETA-1-GLOBULINS % 4.7 % (4.7-7.2); BETA-2-GLOBULINS % 3.5 % (3.2-6.5); GAMMA GLOBULIN % 19.5 % (11.1-18.8)
[2021-03-12 10:55] LABS: ALPHA-1-GLOBULINS 0.27 GM/DL (0.17-0.41); ALPHA-2-GLOBULINS 1.01 GM/DL (0.42-0.99); BETA-1-GLOBULINS 0.34 GM/DL (0.28-0.60); BETA-2-GLOBULINS 0.26 GM/DL (0.19-0.55); GAMMA GLOBULINS 1.42 GM/DL (0.65-1.58)
[2021-03-12 17:12] LABS: FREE KAPPA LIGHT CHAINS SERUMX 119.8 mg/L (3.3-19.4); FREE LAMBDA LIGHT CHAINSX 13.5 mg/L (5.7-26.3); KAPPA/LAMBDA RATIO SERUMX 8.87 (0.26-1.65)
[2021-04-09 08:42] VITALS: BP 143/82; O2SAT 100
[2021-04-09 08:47] LABS: BASO # 0.1 10^3/uL (0.0-0.2); BASO % 0.7 % (0.0-1.0); EOS # 0.2 10^3/uL (0.0-0.5); EOS % 2.7 % (0.0-3.0); LYMPH # 3.8 10^3/uL (1.5-5.0); LYMPH % 51.5 % (24.0-44.0); MONO # 0.4 10^3/uL (0.0-0.8); MONO % 5.1 % (2.0-8.0); NEUTROPHILS # 3.0 10^3/uL (1.5-8.5); NEUTROPHILS % 39.9 % (36.0-66.0); PLATELET COUNT, AUTOMATED 201 10^3/uL (150-450)
[2021-04-09 09:15] LABS: ALT/SGPT 29.0 U/L (12-78); AST/SGOT 34.0 U/L (7-37); CALCIUM LEVEL 10.2 MG/DL (8.8-10.2); CARBON DIOXIDE LEVEL 28.0 MEQ/L (21-32); CHLORIDE LEVEL 108.0 MEQ/L (98-107); CREATININE FOR GFR 2.42 MG/DL (0.55-1.30); GLOMERULAR FILTRATION RATE 20.2 (>32); POTASSIUM SERUM 3.4 MEQ/L (3.5-5.1); SODIUM LEVEL 140.0 MEQ/L (136-145)
[2021-04-09] MEDS: BORTEZOMIB for SC use (VELCADE) SC ONE (09:15)
[2021-04-09 10:24] LABS: INR 1.0
[2021-04-10 18:07] LABS: FREE KAPPA LIGHT CHAINS SERUMX 191.4 mg/L (3.3-19.4); FREE LAMBDA LIGHT CHAINSX 17.7 mg/L (5.7-26.3); KAPPA/LAMBDA RATIO SERUMX 10.81 (0.26-1.65)
[2021-04-12 09:59] LABS: ALBUMIN % 51.6 % (55.8-66.1); ALPHA-1-GLOBULIN % 3.8 % (2.9-4.9); ALPHA-1-GLOBULINS 0.29 GM/DL (0.17-0.41); ALPHA-2-GLOBULINS 1.03 GM/DL (0.42-0.99); ALPHA-2-GLOBULINS % 13.6 % (7.1-11.8); BETA-1-GLOBULINS 0.31 GM/DL (0.28-0.60); BETA-1-GLOBULINS % 4.1 % (4.7-7.2); BETA-2-GLOBULINS 0.25 GM/DL (0.19-0.55); BETA-2-GLOBULINS % 3.3 % (3.2-6.5); GAMMA GLOBULIN % 23.6 % (11.1-18.8); GAMMA GLOBULINS 1.79 GM/DL (0.65-1.58)
[2021-04-16 10:06] LABS: BASO # 0.0 10^3/uL (0.0-0.2); BASO % 0.5 % (0.0-1.0); EOS # 0.1 10^3/uL (0.0-0.5); EOS % 1.0 % (0.0-3.0); LYMPH # 3.8 10^3/uL (1.5-5.0); LYMPH % 43.3 % (24.0-44.0); MONO # 0.3 10^3/uL (0.0-0.8); MONO % 3.6 % (2.0-8.0); NEUTROPHILS # 4.5 10^3/uL (1.5-8.5); NEUTROPHILS % 51.1 % (36.0-66.0); PLATELET COUNT, AUTOMATED 171 10^3/uL (150-450)
[2021-05-13 08:43] LABS: BASO # 0.0 10^3/uL (0.0-0.2); BASO % 0.5 % (0.0-1.0); EOS # 0.2 10^3/uL (0.0-0.5); EOS % 2.5 % (0.0-3.0); LYMPH # 3.5 10^3/uL (1.5-5.0); LYMPH % 46.6 % (24.0-44.0); MONO # 0.4 10^3/uL (0.0-0.8); MONO % 4.6 % (2.0-8.0); NEUTROPHILS # 3.5 10^3/uL (1.5-8.5); NEUTROPHILS % 45.5 % (36.0-66.0); PLATELET COUNT, AUTOMATED 208 10^3/uL (150-450)
[2021-05-13 08:58] VITALS: BP 155/82; O2SAT 97
[2021-05-13 09:19] LABS: ALT/SGPT 20.0 U/L (12-78); AST/SGOT 29.0 U/L (7-37); CALCIUM LEVEL 9.6 MG/DL (8.8-10.2); CARBON DIOXIDE LEVEL 29.0 MEQ/L (21-32); CHLORIDE LEVEL 107.0 MEQ/L (98-107); CREATININE FOR GFR 1.67 MG/DL (0.55-1.30); GLOMERULAR FILTRATION RATE 31.0 (>32); POTASSIUM SERUM 3.7 MEQ/L (3.5-5.1); SODIUM LEVEL 141.0 MEQ/L (136-145)
[2021-05-13] MEDS: [UNRECOGNIZED DRUG - REMARK] SQ SCH (10:39)
[2021-05-14 17:07] LABS: FREE KAPPA LIGHT CHAINS SERUMX 142.2 mg/L (3.3-19.4); FREE LAMBDA LIGHT CHAINSX 14.3 mg/L (5.7-26.3); KAPPA/LAMBDA RATIO SERUMX 9.94 (0.26-1.65)
[2021-05-18 13:17] LABS: ALBUMIN % 51.3 % (55.8-66.1); ALPHA-1-GLOBULIN % 3.8 % (2.9-4.9); ALPHA-2-GLOBULINS % 13.5 % (7.1-11.8); BETA-1-GLOBULINS % 4.1 % (4.7-7.2); BETA-2-GLOBULINS % 3.1 % (3.2-6.5)
[2021-05-18 13:18] LABS: ALPHA-1-GLOBULINS 0.28 GM/DL (0.17-0.41); ALPHA-2-GLOBULINS 0.99 GM/DL (0.42-0.99); BETA-1-GLOBULINS 0.30 GM/DL (0.28-0.60); BETA-2-GLOBULINS 0.23 GM/DL (0.19-0.55); GAMMA GLOBULIN % 24.2 % (11.1-18.8); GAMMA GLOBULINS 1.77 GM/DL (0.65-1.58)
[2021-05-20 14:08] LABS: BASO # 0.0 10^3/uL (0.0-0.2); BASO % 0.5 % (0.0-1.0); EOS # 0.2 10^3/uL (0.0-0.5); EOS % 2.3 % (0.0-3.0); LYMPH # 4.2 10^3/uL (1.5-5.0); LYMPH % 54.2 % (24.0-44.0); MONO # 0.4 10^3/uL (0.0-0.8); MONO % 5.2 % (2.0-8.0); NEUTROPHILS # 2.9 10^3/uL (1.5-8.5); NEUTROPHILS % 37.5 % (36.0-66.0); PLATELET COUNT, AUTOMATED 234 10^3/uL (150-450)
[2021-05-20] MEDS: [UNRECOGNIZED DRUG - REMARK] SC SCH (14:34)
[2021-06-17 09:32] LABS: BASO # 0.0 10^3/uL (0.0-0.2); BASO % 0.6 % (0.0-1.0); EOS # 0.3 10^3/uL (0.0-0.5); EOS % 4.8 % (0.0-3.0); LYMPH # 3.0 10^3/uL (1.5-5.0); LYMPH % 44.6 % (24.0-44.0); MONO # 0.4 10^3/uL (0.0-0.8); MONO % 5.6 % (2.0-8.0); NEUTROPHILS # 2.9 10^3/uL (1.5-8.5); NEUTROPHILS % 44.1 % (36.0-66.0); PLATELET COUNT, AUTOMATED 157 10^3/uL (150-450)
[2021-06-17] MEDS: [UNRECOGNIZED DRUG - REMARK] SC SCH (10:02)
[2021-07-13 08:32] LABS: BASO # 0.1 10^3/uL (0.0-0.2); BASO % 0.6 % (0.0-1.0); EOS # 0.4 10^3/uL (0.0-0.5); EOS % 4.6 % (0.0-3.0); LYMPH # 4.2 10^3/uL (1.5-5.0); LYMPH % 53.2 % (24.0-44.0); MONO # 0.3 10^3/uL (0.0-0.8); MONO % 4.3 % (2.0-8.0); NEUTROPHILS # 2.9 10^3/uL (1.5-8.5); NEUTROPHILS % 37.2 % (36.0-66.0); PLATELET COUNT, AUTOMATED 169 10^3/uL (150-450)
[2021-07-13 08:39] VITALS: BP 166/67; O2SAT 98
[2021-07-13 09:05] LABS: AST/SGOT 30 U/L (7-37); CALCIUM LEVEL 9.8 MG/DL (8.8-10.2); CARBON DIOXIDE LEVEL 29 MEQ/L (21-32); CHLORIDE LEVEL 111 MEQ/L (98-107); CREATININE FOR GFR 1.83 MG/DL (0.55-1.30); GLOMERULAR FILTRATION RATE 27.9 (>32); POTASSIUM SERUM 3.5 MEQ/L (3.5-5.1); SODIUM LEVEL 143 MEQ/L (136-145)
[2021-07-13 09:06] LABS: ALT/SGPT 19 U/L (12-78)
[2021-07-13] MEDS: [UNRECOGNIZED DRUG - REMARK] SC SCH (09:25)
[2021-07-14 17:09] LABS: FREE KAPPA LIGHT CHAINS SERUMX 108.0 mg/L (3.3-19.4); FREE LAMBDA LIGHT CHAINSX 14.3 mg/L (5.7-26.3); KAPPA/LAMBDA RATIO SERUMX 7.55 (0.26-1.65)
[2021-07-15 10:58] LABS: ALBUMIN % 50.2 % (55.8-66.1); ALPHA-1-GLOBULIN % 3.5 % (2.9-4.9); ALPHA-1-GLOBULINS 0.26 GM/DL (0.17-0.41); ALPHA-2-GLOBULINS 0.95 GM/DL (0.42-0.99); ALPHA-2-GLOBULINS % 12.7 % (7.1-11.8); BETA-1-GLOBULINS 0.32 GM/DL (0.28-0.60); BETA-1-GLOBULINS % 4.2 % (4.7-7.2); BETA-2-GLOBULINS 0.24 GM/DL (0.19-0.55); BETA-2-GLOBULINS % 3.2 % (3.2-6.5); GAMMA GLOBULIN % 26.2 % (11.1-18.8); GAMMA GLOBULINS 1.97 GM/DL (0.65-1.58)
[2021-08-10 08:35] LABS: BASO # 0.1 10^3/uL (0.0-0.2); BASO % 0.7 % (0.0-1.0); EOS # 0.6 10^3/uL (0.0-0.5); EOS % 7.2 % (0.0-3.0); LYMPH # 3.8 10^3/uL (1.5-5.0); LYMPH % 49.1 % (24.0-44.0); MONO # 0.3 10^3/uL (0.0-0.8); MONO % 4.5 % (2.0-8.0); NEUTROPHILS # 2.9 10^3/uL (1.5-8.5); NEUTROPHILS % 38.4 % (36.0-66.0); PLATELET COUNT, AUTOMATED 173 10^3/uL (150-450)
[2021-08-10] MEDS: [UNRECOGNIZED DRUG - REMARK] SC SCH (08:57)
[2021-09-13 08:37] LABS: BASO # 0.0 10^3/uL (0.0-0.2); BASO % 0.6 % (0.0-1.0); EOS # 0.4 10^3/uL (0.0-0.5); EOS % 6.0 % (0.0-3.0); LYMPH # 3.3 10^3/uL (1.5-5.0); LYMPH % 50.3 % (24.0-44.0); MONO # 0.3 10^3/uL (0.0-0.8); MONO % 4.7 % (2.0-8.0); NEUTROPHILS # 2.5 10^3/uL (1.5-8.5); NEUTROPHILS % 38.2 % (36.0-66.0); PLATELET COUNT, AUTOMATED 149 10^3/uL (150-450)
[2021-09-13] MEDS: [UNRECOGNIZED DRUG - REMARK] SC SCH (09:26)
[2021-10-11 09:18] LABS: BASO # 0.0 10^3/uL (0.0-0.2); BASO % 0.6 % (0.0-1.0); EOS # 0.4 10^3/uL (0.0-0.5); EOS % 5.2 % (0.0-3.0); LYMPH # 3.4 10^3/uL (1.5-5.0); LYMPH % 50.2 % (24.0-44.0); MONO # 0.3 10^3/uL (0.0-0.8); MONO % 3.8 % (2.0-8.0); NEUTROPHILS # 2.7 10^3/uL (1.5-8.5); NEUTROPHILS % 40.1 % (36.0-66.0); PLATELET COUNT, AUTOMATED 145 10^3/uL (150-450)
[2021-10-11 09:34] LABS: ALT/SGPT 20.0 U/L (12-78); AST/SGOT 33.0 U/L (7-37); CALCIUM LEVEL 9.9 MG/DL (8.8-10.2); CARBON DIOXIDE LEVEL 29.0 MEQ/L (21-32); CHLORIDE LEVEL 109.0 MEQ/L (98-107); CREATININE FOR GFR 1.71 MG/DL (0.55-1.30); GLOMERULAR FILTRATION RATE 30.2 (>32); POTASSIUM SERUM 3.7 MEQ/L (3.5-5.1); SODIUM LEVEL 141.0 MEQ/L (136-145)
[2021-10-11] MEDS: [UNRECOGNIZED DRUG - REMARK] SC SCH (09:54)
[2021-10-12 11:16] VITALS: BP 102/68; O2SAT 99
[2021-10-12 16:24] LABS: IRON (FE) 67 UG/DL (50-170); PERCENT SATURATION 31.9 % (13.2-45.0)
[2021-10-12 17:08] LABS: FREE KAPPA LIGHT CHAINS SERUMX 141.4 mg/L (3.3-19.4); FREE LAMBDA LIGHT CHAINSX 14.7 mg/L (5.7-26.3); KAPPA/LAMBDA RATIO SERUMX 9.62 (0.26-1.65)
[2021-10-13 14:46] LABS: ALBUMIN % 49.6 % (55.8-66.1); ALPHA-1-GLOBULIN % 3.5 % (2.9-4.9); ALPHA-2-GLOBULINS % 12.4 % (7.1-11.8); BETA-1-GLOBULINS % 4.0 % (4.7-7.2)
[2021-10-13 14:47] LABS: ALPHA-1-GLOBULINS 0.28 GM/DL (0.17-0.41); ALPHA-2-GLOBULINS 0.98 GM/DL (0.42-0.99); BETA-1-GLOBULINS 0.32 GM/DL (0.28-0.60); BETA-2-GLOBULINS 0.24 GM/DL (0.19-0.55); BETA-2-GLOBULINS % 3.0 % (3.2-6.5); GAMMA GLOBULIN % 27.5 % (11.1-18.8); GAMMA GLOBULINS 2.17 GM/DL (0.65-1.58)
[2021-11-08 07:59] LABS: BASO # 0.0 10^3/uL (0.0-0.2); BASO % 0.4 % (0.0-1.0); EOS # 0.2 10^3/uL (0.0-0.5); EOS % 2.3 % (0.0-3.0); LYMPH # 3.7 10^3/uL (1.5-5.0); LYMPH % 50.1 % (24.0-44.0); MONO # 0.3 10^3/uL (0.0-0.8); MONO % 3.6 % (2.0-8.0); NEUTROPHILS # 3.2 10^3/uL (1.5-8.5); NEUTROPHILS % 43.3 % (36.0-66.0); PLATELET COUNT, AUTOMATED 156 10^3/uL (150-450)
[2021-11-08] MEDS: DARBEPOETIN 100 MCG/0.5 ML *NON-DIALYSIS* SYRINGE SC SCH (09:02)
[2021-12-06 07:52] LABS: BASO # 0.1 10^3/uL (0.0-0.2); BASO % 0.8 % (0.0-1.0); EOS # 0.4 10^3/uL (0.0-0.5); EOS % 5.7 % (0.0-3.0); LYMPH # 3.3 10^3/uL (1.5-5.0); LYMPH % 54.0 % (24.0-44.0); MONO # 0.3 10^3/uL (0.0-0.8); MONO % 4.5 % (2.0-8.0); NEUTROPHILS # 2.1 10^3/uL (1.5-8.5); NEUTROPHILS % 34.7 % (36.0-66.0); PLATELET COUNT, AUTOMATED 163 10^3/uL (150-450)
[2021-12-06] MEDS: DARBEPOETIN 100 MCG/0.5 ML *NON-DIALYSIS* SYRINGE SC SCH (08:56)
[2021-12-14 08:28] VITALS: BP 152/67; O2SAT 100
[2021-12-14 09:33] LABS: BASO # 0.0 10^3/uL (0.0-0.2); BASO % 0.5 % (0.0-1.0); EOS # 0.4 10^3/uL (0.0-0.5); EOS % 5.8 % (0.0-3.0); LYMPH # 3.1 10^3/uL (1.5-5.0); LYMPH % 50.8 % (24.0-44.0); MONO # 0.3 10^3/uL (0.0-0.8); MONO % 4.3 % (2.0-8.0); NEUTROPHILS # 2.3 10^3/uL (1.5-8.5); NEUTROPHILS % 38.4 % (36.0-66.0); PLATELET COUNT, AUTOMATED 184 10^3/uL (150-450)
[2021-12-14 09:54] LABS: ALT/SGPT 21 U/L (12-78); AST/SGOT 33 U/L (7-37); CALCIUM LEVEL 10.3 MG/DL (8.8-10.2); CARBON DIOXIDE LEVEL 28 MEQ/L (21-32); CHLORIDE LEVEL 107 MEQ/L (98-107); CREATININE FOR GFR 1.85 MG/DL (0.55-1.30); GLOMERULAR FILTRATION RATE 27.6 (>32); IRON (FE) 63 UG/DL (50-170); PERCENT SATURATION 29.2 % (13.2-45.0); POTASSIUM SERUM 4.1 MEQ/L (3.5-5.1); SODIUM LEVEL 143 MEQ/L (136-145)
[2021-12-15 18:09] LABS: FREE KAPPA LIGHT CHAINS SERUMX 161.4 mg/L (3.3-19.4); FREE LAMBDA LIGHT CHAINSX 19.0 mg/L (5.7-26.3); KAPPA/LAMBDA RATIO SERUMX 8.49 (0.26-1.65)
[2021-12-17 08:13] LABS: ALBUMIN % 48.9 % (55.8-66.1); ALPHA-1-GLOBULIN % 3.2 % (2.9-4.9); ALPHA-1-GLOBULINS 0.25 GM/DL (0.17-0.41); ALPHA-2-GLOBULINS 0.93 GM/DL (0.42-0.99); ALPHA-2-GLOBULINS % 11.8 % (7.1-11.8); BETA-1-GLOBULINS 0.32 GM/DL (0.28-0.60); BETA-1-GLOBULINS % 4.0 % (4.7-7.2); BETA-2-GLOBULINS 0.24 GM/DL (0.19-0.55); BETA-2-GLOBULINS % 3.0 % (3.2-6.5); GAMMA GLOBULIN % 29.1 % (11.1-18.8); GAMMA GLOBULINS 2.30 GM/DL (0.65-1.58)
[2022-01-03 08:39] LABS: BASO # 0.0 10^3/uL (0.0-0.2); BASO % 0.6 % (0.0-1.0); EOS # 0.3 10^3/uL (0.0-0.5); EOS % 4.5 % (0.0-3.0); LYMPH # 3.8 10^3/uL (1.5-5.0); LYMPH % 59.0 % (24.0-44.0); MONO # 0.3 10^3/uL (0.0-0.8); MONO % 4.2 % (2.0-8.0); NEUTROPHILS # 2.0 10^3/uL (1.5-8.5); NEUTROPHILS % 31.5 % (36.0-66.0); PLATELET COUNT, AUTOMATED 151 10^3/uL (150-450)
[2022-01-03] MEDS: DARBEPOETIN 100 MCG/0.5 ML *NON-DIALYSIS* SYRINGE SC SCH (09:10)
[2022-01-20 08:14] VITALS: BP 142/62; O2SAT 99
[2022-01-31 09:21] LABS: BASO # 0.1 10^3/uL (0.0-0.2); BASO % 0.7 % (0.0-1.0); EOS # 0.3 10^3/uL (0.0-0.5); EOS % 3.7 % (0.0-3.0); LYMPH # 3.5 10^3/uL (1.5-5.0); LYMPH % 47.7 % (24.0-44.0); MONO # 0.3 10^3/uL (0.0-0.8); MONO % 3.4 % (2.0-8.0); NEUTROPHILS # 3.3 10^3/uL (1.5-8.5); NEUTROPHILS % 44.4 % (36.0-66.0); PLATELET COUNT, AUTOMATED 160 10^3/uL (150-450)
[2022-01-31] MEDS: DARBEPOETIN 100 MCG/0.5 ML *NON-DIALYSIS* SYRINGE SC SCH (09:47)
[2022-02-28 08:45] LABS: BASO # 0.1 10^3/uL (0.0-0.2); BASO % 0.8 % (0.0-1.0); EOS # 0.2 10^3/uL (0.0-0.5); EOS % 3.8 % (0.0-3.0); LYMPH # 3.2 10^3/uL (1.5-5.0); LYMPH % 50.8 % (24.0-44.0); MONO # 0.2 10^3/uL (0.0-0.8); MONO % 3.8 % (2.0-8.0); NEUTROPHILS # 2.5 10^3/uL (1.5-8.5); NEUTROPHILS % 40.6 % (36.0-66.0); PLATELET COUNT, AUTOMATED 153 10^3/uL (150-450)
[2022-02-28] MEDS: DARBEPOETIN 100 MCG/0.5 ML *NON-DIALYSIS* SYRINGE SC SCH (09:37)
[2022-03-28 08:09] VITALS: BP 158/58; O2SAT 99
[2022-03-28 08:13] LABS: BASO # 0.1 10^3/uL (0.0-0.2); BASO % 0.8 % (0.0-1.0); EOS # 0.4 10^3/uL (0.0-0.5); EOS % 6.0 % (0.0-3.0); LYMPH # 3.1 10^3/uL (1.5-5.0); LYMPH % 51.2 % (24.0-44.0); MONO # 0.2 10^3/uL (0.0-0.8); MONO % 3.8 % (2.0-8.0); NEUTROPHILS # 2.3 10^3/uL (1.5-8.5); NEUTROPHILS % 38.0 % (36.0-66.0); PLATELET COUNT, AUTOMATED 150 10^3/uL (150-450)
[2022-03-28] MEDS: DARBEPOETIN 100 MCG/0.5 ML *NON-DIALYSIS* SYRINGE SC SCH (08:45)
[2022-04-25 09:02] LABS: BASO # 0.1 10^3/uL (0.0-0.2); BASO % 0.8 % (0.0-1.0); EOS # 0.5 10^3/uL (0.0-0.5); EOS % 7.2 % (0.0-3.0); LYMPH # 2.9 10^3/uL (1.5-5.0); LYMPH % 47.3 % (24.0-44.0); MONO # 0.2 10^3/uL (0.0-0.8); MONO % 3.5 % (2.0-8.0); NEUTROPHILS # 2.6 10^3/uL (1.5-8.5); NEUTROPHILS % 41.0 % (36.0-66.0); PLATELET COUNT, AUTOMATED 154 10^3/uL (150-450)
[2022-04-25] MEDS: DARBEPOETIN 100 MCG/0.5 ML *NON-DIALYSIS* SYRINGE SC SCH (09:53)
[2022-05-25 08:22] VITALS: BP 182/83; O2SAT 97
[2022-05-25 08:55] VITALS: BP 176/74
[2022-05-25 09:26] LABS: BASO # 0.0 10^3/uL (0.0-0.2); BASO % 0.4 % (0.0-1.0); EOS # 0.1 10^3/uL (0.0-0.5); EOS % 0.9 % (0.0-3.0); LYMPH # 1.9 10^3/uL (1.5-5.0); LYMPH % 34.8 % (24.0-44.0); MONO # 0.2 10^3/uL (0.0-0.8); MONO % 3.5 % (2.0-8.0); NEUTROPHILS # 3.3 10^3/uL (1.5-8.5); NEUTROPHILS % 60.0 % (36.0-66.0); PLATELET COUNT, AUTOMATED 147 10^3/uL (150-450)
[2022-05-25] MEDS: DARBEPOETIN 100 MCG/0.5 ML *NON-DIALYSIS* SYRINGE SC SCH (10:24)
[2022-06-22 10:22] LABS: BASO # 0.1 10^3/uL (0.0-0.2); BASO % 0.8 % (0.0-1.0); EOS # 0.4 10^3/uL (0.0-0.5); EOS % 5.7 % (0.0-3.0); LYMPH # 2.6 10^3/uL (1.5-5.0); LYMPH % 43.1 % (24.0-44.0); MONO # 0.2 10^3/uL (0.0-0.8); MONO % 3.9 % (2.0-8.0); NEUTROPHILS # 2.8 10^3/uL (1.5-8.5); NEUTROPHILS % 46.2 % (36.0-66.0); PLATELET COUNT, AUTOMATED 167 10^3/uL (150-450)
[2022-06-22] MEDS: [UNRECOGNIZED DRUG - REMARK] SC SCH (10:50)
[2022-07-20 09:58] LABS: BASO # 0.0 10^3/uL (0.0-0.2); BASO % 0.5 % (0.0-1.0); EOS # 0.3 10^3/uL (0.0-0.5); EOS % 5.9 % (0.0-3.0); LYMPH # 2.4 10^3/uL (1.5-5.0); LYMPH % 40.9 % (24.0-44.0); MONO # 0.2 10^3/uL (0.0-0.8); MONO % 3.1 % (2.0-8.0); NEUTROPHILS # 2.8 10^3/uL (1.5-8.5); NEUTROPHILS % 49.4 % (36.0-66.0); PLATELET COUNT, AUTOMATED 166 10^3/uL (150-450)
[2022-07-20 10:05] VITALS: BP 188/79; O2SAT 99
[2022-07-20 10:32] LABS: ALT/SGPT 12.0 U/L (7.0-40); AST/SGOT 29.0 U/L (<34); CALCIUM LEVEL 8.9 MG/DL (8.3-10.6); CARBON DIOXIDE LEVEL 22.0 MMOL/L (20-31); CHLORIDE LEVEL 110.0 MMOL/L (98-107); CREATININE FOR GFR 3.16 MG/DL (0.55-1.30); GLOMERULAR FILTRATION RATE 14.8 (>32); POTASSIUM SERUM 4.4 MMOL/L (3.5-5.1); SODIUM LEVEL 138.0 MMOL/L (136-145)
[2022-07-20 11:42] LABS: MAGNESIUM LEVEL 1.7 MG/DL (1.8-2.4)
[2022-07-20 11:43] LABS: IRON (FE) 64.0 UG/DL (50-170); PERCENT SATURATION 25.0 % (13.2-45.0)
[2022-07-20] MEDS: ACETAMINOPHEN TAB 650MG DOSE (2X325MG) PO SCH (12:43)
[2022-07-20 13:22] VITALS: BP 144/82; TEMP 97.9
[2022-07-20 13:46] VITALS: BP 146/78; TEMP 97.6; O2SAT 98
[2022-07-20 14:25] VITALS: BP 140/78; TEMP 97; O2SAT 99
[2022-07-20 15:23] VITALS: BP 150/82; O2SAT 99
[2022-07-21 08:01] VITALS: BP 178/60; O2SAT 99
[2022-07-21] MEDS: ACETAMINOPHEN TAB 650MG DOSE (2X325MG) PO ONE (08:14)
[2022-07-21 08:49] VITALS: BP 172/60; TEMP 97.6; O2SAT 100
[2022-07-21 09:05] VITALS: BP 168/64; TEMP 97.6; O2SAT 100
[2022-07-21] MEDS: [UNRECOGNIZED DRUG - REMARK] SC SCH (09:56)
[2022-07-21 10:20] VITALS: BP 158/62; TEMP 97.6; O2SAT 100
[2022-07-21] MEDS: SODIUM CHLORIDE 0.9% INJ 10 ML SYR IV PRN (11:12)
[2022-07-21 11:20] VITALS: BP 154/60; TEMP 97.7; O2SAT 99
[2022-07-21 17:07] LABS: FREE KAPPA LIGHT CHAINS SERUMX 193.8 mg/L (3.3-19.4); FREE LAMBDA LIGHT CHAINSX 22.9 mg/L (5.7-26.3); KAPPA/LAMBDA RATIO SERUMX 8.46 (0.26-1.65)
[2022-07-26 11:33] LABS: ALBUMIN % 47.0 % (55.8-66.1); ALPHA-1-GLOBULIN % 3.9 % (2.9-4.9); ALPHA-1-GLOBULINS 0.27 GM/DL (0.17-0.41); ALPHA-2-GLOBULINS 0.92 GM/DL (0.42-0.99); ALPHA-2-GLOBULINS % 13.2 % (7.1-11.8); BETA-1-GLOBULINS 0.28 GM/DL (0.28-0.60); BETA-1-GLOBULINS % 4.0 % (4.7-7.2); BETA-2-GLOBULINS 0.22 GM/DL (0.19-0.55); BETA-2-GLOBULINS % 3.1 % (3.2-6.5); GAMMA GLOBULIN % 28.8 % (11.1-18.8); GAMMA GLOBULINS 2.02 GM/DL (0.65-1.58)
[2022-07-27 11:33] LABS: BASO # 0.1 10^3/uL (0.0-0.2); BASO % 0.8 % (0.0-1.0); EOS # 0.3 10^3/uL (0.0-0.5); EOS % 5.0 % (0.0-3.0); LYMPH # 2.6 10^3/uL (1.5-5.0); LYMPH % 41.6 % (24.0-44.0); MONO # 0.2 10^3/uL (0.0-0.8); MONO % 3.8 % (2.0-8.0); NEUTROPHILS # 3.1 10^3/uL (1.5-8.5); NEUTROPHILS % 48.6 % (36.0-66.0); PLATELET COUNT, AUTOMATED 181 10^3/uL (150-450)
[2022-07-27 12:13] LABS: ALT/SGPT 13.0 U/L (7.0-40); AST/SGOT 30.0 U/L (<34); CALCIUM LEVEL 8.6 MG/DL (8.3-10.6); CARBON DIOXIDE LEVEL 25.0 MMOL/L (20-31); CHLORIDE LEVEL 109.0 MMOL/L (98-107); CREATININE FOR GFR 3.49 MG/DL (0.55-1.30); GLOMERULAR FILTRATION RATE 13.2 (>32); POTASSIUM SERUM 4.5 MMOL/L (3.5-5.1); SODIUM LEVEL 140.0 MMOL/L (136-145)
[2022-08-03 13:20] VITALS: BP 110/64; O2SAT 98
[2022-08-03 14:03] LABS: BASO # 0.0 10^3/uL (0.0-0.2); BASO % 0.6 % (0.0-1.0); EOS # 0.3 10^3/uL (0.0-0.5); EOS % 4.7 % (0.0-3.0); LYMPH # 2.9 10^3/uL (1.5-5.0); LYMPH % 42.0 % (24.0-44.0); MONO # 0.2 10^3/uL (0.0-0.8); MONO % 3.5 % (2.0-8.0); NEUTROPHILS # 3.4 10^3/uL (1.5-8.5); NEUTROPHILS % 49.1 % (36.0-66.0); PLATELET COUNT, AUTOMATED 180 10^3/uL (150-450)
[2022-08-03 14:10] LABS: ALT/SGPT 12.0 U/L (7.0-40); AST/SGOT 31.0 U/L (<34); CALCIUM LEVEL 9.1 MG/DL (8.3-10.6); CARBON DIOXIDE LEVEL 25.0 MMOL/L (20-31); CHLORIDE LEVEL 107.0 MMOL/L (98-107); CREATININE FOR GFR 4.18 MG/DL (0.55-1.30); GLOMERULAR FILTRATION RATE 10.7 (>32); POTASSIUM SERUM 4.2 MMOL/L (3.5-5.1); SODIUM LEVEL 140.0 MMOL/L (136-145)
[2022-08-03] MEDS: DARBEPOETIN 100 MCG/0.5 ML *NON-DIALYSIS* SYRINGE SC SCH (15:24)
[2022-08-04 11:35] LABS: ALBUMIN % 45.6 % (55.8-66.1); ALPHA-1-GLOBULIN % 4.1 % (2.9-4.9); ALPHA-1-GLOBULINS 0.30 GM/DL (0.17-0.41); ALPHA-2-GLOBULINS 1.00 GM/DL (0.42-0.99); ALPHA-2-GLOBULINS % 13.5 % (7.1-11.8); BETA-1-GLOBULINS 0.30 GM/DL (0.28-0.60); BETA-1-GLOBULINS % 4.1 % (4.7-7.2); BETA-2-GLOBULINS 0.24 GM/DL (0.19-0.55); BETA-2-GLOBULINS % 3.2 % (3.2-6.5); GAMMA GLOBULIN % 29.5 % (11.1-18.8); GAMMA GLOBULINS 2.18 GM/DL (0.65-1.58)
[2022-08-04 18:07] LABS: FREE KAPPA LIGHT CHAINS SERUMX 191.2 mg/L (3.3-19.4); FREE LAMBDA LIGHT CHAINSX 24.0 mg/L (5.7-26.3); KAPPA/LAMBDA RATIO SERUMX 7.97 (0.26-1.65)
[2022-08-17] MEDS: DARBEPOETIN 100 MCG/0.5 ML *NON-DIALYSIS* SYRINGE SC SCH (13:39)
[2022-08-31 11:30] VITALS: BP 179/76; O2SAT 97
[2022-08-31] MEDS: DARBEPOETIN 100 MCG/0.5 ML *NON-DIALYSIS* SYRINGE SC SCH (12:31)
[2022-09-14 12:12] LABS: BASO # 0.0 10^3/uL (0.0-0.2); BASO % 0.5 % (0.0-1.0); EOS # 0.3 10^3/uL (0.0-0.5); EOS % 4.5 % (0.0-3.0); LYMPH # 3.1 10^3/uL (1.5-5.0); LYMPH % 48.3 % (24.0-44.0); MONO # 0.2 10^3/uL (0.0-0.8); MONO % 3.3 % (2.0-8.0); NEUTROPHILS # 2.8 10^3/uL (1.5-8.5); NEUTROPHILS % 43.2 % (36.0-66.0); PLATELET COUNT, AUTOMATED 181 10^3/uL (150-450)
[2022-09-14] MEDS: DARBEPOETIN 100 MCG/0.5 ML *NON-DIALYSIS* SYRINGE SC SCH (12:40)
[2022-09-29 11:38] VITALS: BP 170/82; O2SAT 98
[2022-09-29] MEDS: DARBEPOETIN 100 MCG/0.5 ML *NON-DIALYSIS* SYRINGE SC SCH (12:03)
[2022-11-09 10:58] LABS: BASO # 0.1 10^3/uL (0.0-0.2); BASO % 0.9 % (0.0-1.0); EOS # 0.2 10^3/uL (0.0-0.5); EOS % 4.0 % (0.0-3.0); LYMPH # 2.0 10^3/uL (1.5-5.0); LYMPH % 35.7 % (24.0-44.0); MONO # 0.2 10^3/uL (0.0-0.8); MONO % 3.9 % (2.0-8.0); NEUTROPHILS # 3.1 10^3/uL (1.5-8.5); NEUTROPHILS % 55.3 % (36.0-66.0); PLATELET COUNT, AUTOMATED 154 10^3/uL (150-450)
[2022-11-09] MEDS: DARBEPOETIN 100 MCG/0.5 ML *NON-DIALYSIS* SYRINGE SC SCH (11:33)
[2023-01-19 09:10] VITALS: BP 191/85; O2SAT 99
[~2025-03-24] VITALS: Ht 160 cm; Wt 67.2 kg
[~2025-03-24] MED LIST changes: +ACET-1515 PO; -ACET650T15 PO; -ACETAMINOPHEN 1000MG 100ML IV BAG As Ordered ONE; +ACYC-438 PO; -ACYC1TAB PO; +ALBUTEROL SULFATE (2.5MG/0.5ML) NEB INH PRN; +BORTEZOMIB for SC use (VELCADE) SC ONE; -CISATRACURIUM 2MG/ML 5ML VIAL As Ordered ONE; -COZA100T3 PO; -D5W/0.2% SODIUM CHLORIDE 1,000 ML IV SCH; +DULO30CA9 PO; +ELIQ2.5T PO; +ENTR1TAB PO; +EPINEPHrine (1MG/ML) IV IM PRN; +EPOETIN 40,000 UNIT/ML SC ONE; +EPOETIN ALFA 10000 UNIT/ML SC ONE; +EPOETIN ALFA 40000 UNIT/ML As Ordered ONE; +EPOETIN ALFA 40000 UNIT/ML SC PRN; +FAMOTIDINE IV BAG 20 MG IV PRN; +FERR240T PO; +GABA-1172 PO; -GABA-282 PO; -HYDR-3910 PO; -HYDR25TA PO; +HYDR25TA87 PO; +HYDR25TA88 PO; -HYDROMORPHONE HCL 0.5 MG/ 0.5 ML SYRINGE IV PRN; -LABETALOL 100MG/20ML VIAL As Ordered ONE; -LIDOCAINE 1% SDV 30ML VIAL As Ordered ONE; -LIDOCAINE 2% 100MG/5ML SDV (FOR ANES.) As Ordered ONE; +LOSA-530 PO; +METO1TAB32 PO; +NS (Normal Saline) 0.9% 1,000 ML IV PRN; -ONDANSETRON 4MG 2ML VIAL As Ordered ONE; -ONDANSETRON 4MG 2ML VIAL IV PRN; -PAPAVERINE HCL 60MG 2ML VIAL (30MG/ML) As Ordered ONE; +SEVE800T3 PO; +SODIUM CHLORIDE 0.9% INJ 10 ML SYR IV PRN; +[UNRECOGNIZED DRUG - REMARK] SC SCH; -ceFAZolin SOD 2 GM in IV 1 EA IV ONE; +diphenhydrAMINE (50MG/ML) IV IV PRN; -ePHEDrine SULFATE 25 MG/5 ML(5MG/ML) SYRINGE As Ordered ONE; -fentaNYL 100 MCG/2 ML INJECTION As Ordered ONE; -fentaNYL 100 MCG/2 ML INJECTION IV PRN; +methylPREDNISolone (125 MG/2 ML) IV IV PRN; -oxyCODONE 5MG TAB PO PRN; -propofoL 200 MG/20 ML VIAL As Ordered ONE
== END | disposition expired ==
LOC: M ONCM 05-21 09:04
PROVIDERS: ATTEND Nurse Practitioner
DX: D47.2 Monoclonal gammopathy (principal); Z99.2 Dependence on renal dialysis; C84.9 Mature T/NK-cell lymphomas, unspecified; D63.8 Anemia in other chronic diseases classified elsewhere; N18.4 Chronic kidney disease, stage 4 (severe); D63.1 Anemia in chronic kidney disease; Z79.899 Other long term (current) drug therapy; L03.011 Cellulitis of right finger; G62.9 Polyneuropathy, unspecified; N18.9 Chronic kidney disease, unspecified; D50.9 Iron deficiency anemia, unspecified; I12.9 Hypertensive chronic kidney disease with stage 1 through stage 4 chronic kidney disease, or unspecified chronic kidney disease; E78.5 Hyperlipidemia, unspecified; N20.0 Calculus of kidney; Z79.82 Long term (current) use of aspirin
CPT/HCPCS: 36415; 36430; 38222; 80053; 82607; 82668; 82728; 82746; 82784; 83520; 83521; 83540; 83550; 83615; 83735; 83883; 84156; 84165; 85025; 85027; 85046; 85610; 85730; 86335; 86850; 86900; 86901; 86920; 88300; 88305; 88311; 88313; 96372; 96401; G0463; J0881; J0885; J9041; P9016; Q5106